=== PATIENT | female | born 1950 | race African-American/Black ===

== ENCOUNTER 2020-08-09 15:35 | IRF | payer MEDICARE, MEDICAID, SELFPAY ==
--- NOTE | ~2020-08-09 | US_ITS ---
EXAMINATION: US venous doppler LE EXAM DATE: 08/10/2020 15:15 INDICATION: edema to legs,. TECHNIQUE: Multiple grayscale, color flow and Doppler images of the lower extremity deep venous syste ms bilaterally were obtained and reviewed. There is no prior study for comparison. FINDINGS: Right side: The right common femoral, femoral and profunda veins demonstrate normal color flow, respi ratory variation, augmentation and compressibility. Compressibility, color flow confirmed within the right popliteal, posterior tibial, peroneal, and greater saphenous veins. Left side: The left common femoral, femoral and profunda veins demonstrate normal color flow, respira tory variation, augmentation and compressibility. Compressibility, color flow confirmed within the l eft popliteal, posterior tibial, peroneal, and greater saphenous veins. IMPRESSION: 1. No lower extremity deep venous thrombosis bilaterally. Reviewed, dictated and finalized at location A.
--- NOTE | ~2020-08-09 | XR_ITS ---
EXAMINATION: XR chest 1V portable INDICATION: Pleural effusion TECHNIQUE: Portable AP chest at 1136 hours COMPARISON: None available FINDINGS: A small left pleural effusion is present. There are minimal left basilar airspace opacities . The right lung is clear. There is no pneumothorax. The heart size is upper limits of normal for ron hnique. IMPRESSION: 1. Small left pleural effusion. 2. Left basilar airspace opacity, consistent with atelectasis versus pneumonia. Reviewed, dictated and finalized at location A.
--- NOTE | ~2020-08-09 | CT_ITS ---
EXAMINATION: CT brain wo con EXAM DATE: 08/10/2020 20:04 INDICATION: Drowsiness. History of stroke. TECHNIQUE: Spiral CT of the head was performed without contrast. Axial, coronal and sagittal images were reviewed. The dose-length product (DLP) for this examination was 681.00 mGy-cm. The exposure w as tailored according to patient size, and iterative reconstruction (ASIR) was used as additional dos e reduction technique. There is no prior study for comparison. FINDINGS: There is approximately 1 cm hypodensity in the right peritrigonal white matter, age indeter minate infarct. There is mild to moderate microangiopathy in mild cerebral atrophy. No brain mass, ac elem intraparenchymal hemorrhage, extra-axial collections or obstructive hydrocephalus. Imaged portion s of the maxillary sinuses opacified, mild to moderate bilateral ethmoid periosteal thickening. Hyper ostosis frontalis. Under pneumatized mastoid air cells. IMPRESSION: 1. Small right peritrigonal hypodensity, probably age-indeterminate infarction. 2. Age-related intracranial findings. Reviewed, dictated and finalized at location A. IMPRESSION: 1. Small right peritrigonal hypodensity, probably age-indeterminate infarction . 2. Age-related intracranial findings.
--- OUTSIDE RECORDS SUMMARY | 2020-08-09 15:31 | XMS_ITS ---
:1950 Author Care Team Providers Name Role Phone DR. SALVA QUINTANA Primary Care Provider [phone] DR. SLAVA QUINTANA Referring Provider [phone] Allergies Code Code System Name Reaction Severity Status Onset 723 RxNorm Amoxicillin ? ? Active ? Penicillins ? ? Active ? Medications Name Status Start Date Stop Date ? ? aspirin Active ? Not available 81 mg carvedilol 3.125 mg tablet Active ? Not a vailable indomethacin 50 mg capsule Active ? Not a vailable lisinopril 40 mg tablet Active ? Not avai lable simvastatin 10 mg tablet Active ? Not chun ilable triamterene 75 mg-hydrochlorothiazide 50 Active ? Not available mg tablet TRUEplus Lancets 30 gauge Active ? Not av ailable Truetest Test Strips Active ? Not availab le Problems Name Status Onset Date Source ? Carcinoma of Breast Active ? Encounter Microcalcifications of the Breast Active ? Encounter Procedures Date Name Performed by ? 05/17/2014 Other Information not avai lable Notes: Breast Biopsy Left ? Breast Surgery Information not avai lable Notes: left breast ? Other Information not avai lable Notes: Hysterectomy Results Lab Results Date Name Specimen Result Interpretation Description Value Range Sta
--- NOTE | 2020-08-09 15:32 | ADMGEN ---
This patient, Desi Bynum, was admitted to [facility] Room 225-02. Patient/family oriented to hospital policies and general routines including ID bracelet, bed and alarms, visiting hours, pain management, procedures, bathroom and other care routines, personal items, smoking policy, room service/diet, and visiting hours. Information on how to activate the Rapid Response Team has been discussed. Patient/Family are encouraged to report perceived risks to care and to ask questions if they do not understand what they are told or what they should do. Arrived 1515 via ambulance, quiet affect, no c/o pain. Oriented to place and time.
[2020-08-09 15:34] VITALS: BP 131/59; PULSE 80; RESP 15; TEMP 36.7; O2SAT 98
[2020-08-09 16:52] LABS: INR 0.9; Prothrombin Time 12.6 Seconds (11.1-14.7)
--- NOTE | 2020-08-09 16:59 | WPDREHABHP ---
H&P: HPI History of Present Illness Date/Time: 08/09/20 16:59 Chief Complaint: CVA bilateral hemispheric with left hemiplegia left visual deficits Narrative: HISTORY OF PRESENT ILLNESS: The patient's primary rehab impairment category is [ stroke] The etiologic diagnosis is acute and subacute stroke along the posterior frontal, lateral and posterior lateral parietal posterior and inferior temporal and right occipital lobes. I saw this patient [id number] on 08/09/2020 The patient is a 69-year-old left-handed female with past medical history of hypertension, diabetes mellitus type 2 diet control, TIA, breast cancer for resent to [facility] on 07/31/2020 with complaints of shortness of breath dyspnea on exertion, bilateral lower extremity edema and neck pain over the last 3 days. Patient was also found to have hypertensive urgency with a BP significantly elevated at 230 3/134. Patient received IV labetalol, IV hydralazine, and nitropaste and admitted to telemetry. Workup: Chest x-ray showed development of moderate size right-sided pleural effusion with adjacent right basilar at atelectasis and infiltrate, a small left pleural effusion with left lower lobe atelectasis and infiltrate, and development of central vascular congestion with borderline edema. Echo showed ejection fraction of 50-55%. The physician suspected new onset of heart failure due to volume overload and orthopnea. Patient's creatinine was elevated at 1.74 with a baseline of 1.2. Patient was diuresed with Bumex. Cardiology was consulted due to patient's dizziness on hydralazine. Hydralazine was discontinued and replaced with Cardura. Patient also had intolerance and sensitivity to Imdur, Norvasc, hydrochlorothiazide, and clonidine. On 08/05 the patient underwent a right thoracentesis for effusion with 1 L fluid removal. Patient lost 15 lb during her hospital stay. The patient also had a history of spinal stenosis and degenerative disc disease for July of 2019. MRI of the cervical spine showed no evidence of acute fracture or subluxation. She received [place] for pain control. On 08/05/2020 the patient experience left-sided weakness. MRI revealed numerous foci of cortical and subcortical acute or subacute stroke along the posterior frontal, lateral and posterior lateral parietal, posterior inferior temporal, and right occipital lobe. Patient also had restricted diffusion along the right posterior coronal Boris odd a corresponding to additional areas of stroke. No hemorrhagic conversion was seen. A head CT showed evolving multi foci of right-sided stroke in the parietal, temporal, and Cipro lobe corresponding to prior MRI findings. Carotid Doppler with no significant stenosis were noted. Echo was in normal limits without thrombus. Neurology was consulted and suspected embolic origin she was started on full anticoagulation with INR goal of 2-3. Patient was also placed on Lipitor 80 mg for current LDL of 256. Hemoglobin A1c was 5.8. Telemetry demonstrated PVCs, an SVT and her Bystolic was increased to 20 mg b.i.d. she had no significant air a arrhythmias in the last 48-72 hours On 08/07/2020 the patient had bedside swallow with no signs or symptoms of penetration or aspiration. The patient expressed to downgrade her diet due to mechanically difficulties with mastication. Her physical exam revealed left melvi paresis left the vision deficits, left-sided neglect, balance impairment, mild cognitive deficits, the patient The patient is on a strict I/O of 1100 cc. The patient will be discharged to see on Coumadin is being dosed by pharmacy along with a daily INR to achieve a therapeutic range between 2 and 3. Current INR is 1 Patient is on aspirin Therapy was initiated at the acute care facility and the patient transferred to us from [facility] on 08/09/2020 FALLS OR SURGERIES: The patient has had [no] major surgeries in
[2020-08-09 17:19] VITALS: BMI 27.0
[2020-08-09] MEDS: WARFARIN (*PBKC) 5 MG TABLET PO (17:30)
[2020-08-09 20:00] VITALS: PULSE 77; RESP 16; O2SAT 98
[2020-08-09] MEDS: ACETAMINOPHEN 500 MG TABLET 1000 MG PO (21:03)
[2020-08-09 21:06] VITALS: PULSE 72
[2020-08-09] MEDS: NEBIVOLOL HCL 5 MG TABLET 20 MG PO (21:06)
[2020-08-09] MEDS: ATORVASTATIN 40 MG TABLET 80 MG PO (21:09)
[2020-08-09 21:50] LABS: Glucose Point of Care 100 (65-105)
[2020-08-09 22:00] VITALS: BP 140/55; PULSE 77; RESP 16; TEMP 36.5; O2SAT 98
[2020-08-10] VITALS (7 sets, daily range): BP systolic 158–173; BP diastolic 57–65; PULSE 77–90; RESP 16–20; TEMP 36.3–36.8; O2SAT 95–100
--- NOTE | 2020-08-10 03:28 | PC.NURSE ---
pt assessed for pain and rated pain on as a 10/10. pt refused pain medication at this time.
--- NOTE | 2020-08-10 05:54 | PC.NURSE ---
0245 Attempted to give patient Tylenol and Senna crushed in applesauce but the patient refused both of them.
[2020-08-10 06:37] LABS: Glucose Point of Care 73 (65-105)
[2020-08-10 06:54] LABS: Basophils Percent Auto 0.7 % (0.2-1.2); Eosinophils Absolute Auto 0.1 K/mm3 (0-0.3); Eosinophils Percent Auto 2.6 % (0-4.4); Hematocrit 35.9 % (37.0-47.0); Hemoglobin 11.9 g/dL (12.0-15.0); Immature Granulocyte Absolute 0.01 K/mm3 (0.00-0.031); Immature Granulocyte Percent A 0.2 % (0-0.5); Lymphocytes Absolute Auto 0.99 K/mm3 (0.9-3.2); Lymphocytes Percent Auto 23.2 % (18.3-44.2); Mean Corpuscular HGB Conc 33.1 g/dl (32-36); Mean Corpuscular Hemoglobin 27.2 pg (26-34); Mean Platelet Volume 10.6 fl (7.4-10.4); Monocytes Absolute Auto 0.5 K/mm3 (0.1-0.6); Monocytes Percent Auto 11.9 % (2.6-8.5); Neutrophils Absolute Auto 2.6 K/mm3 (1.3-6.7); Neutrophils Percent Auto 61.4 % (45.5-73.1); Platelet Count Result 331 k/mm3 (150-375); Red Blood Count 4.38 M/mm3 (4.2-5.4); Red Cell Distribution Width 14.3 % (11.5-14.5); White Blood Count 4.3 K/mm3 (4.5-10.0)
[2020-08-10 07:05] LABS: Anion Gap 4 mmol/L (8-16); Blood Urea Nitrogen 30 mg/dL (7-17); Calcium 9.5 mg/dL (8.4-10.2); Carbon Dioxide 28 mmol/L (22-30); Chloride 106 mmol/L (98-107); Cholesterol 286 mg/dL (0-200); Estimated CRCL calculation 22 ml/min; Estimated Glomerular Filt Rate 32; Glucose 87 mg/dL (65-105); HDL Direct 39 mg/dL; Potassium 3.8 mmol/L (3.4-5.0); Sodium 138 mmol/L (137-145); Triglycerides 214 mg/dL (<150)
[2020-08-10 07:07] LABS: Hemoglobin A1C 5.3 % (<5.7)
[2020-08-10 07:09] LABS: Glucose Point of Care 108 (65-105)
[2020-08-10 07:17] LABS: LDL Cholesterol Direct 140 mg/dL
[2020-08-10] MEDS: DOXAZOSIN MESYLATE 2 MG TABLET PO (08:48)
[2020-08-10] MEDS: ASPIRIN 81 MG ENTERIC TABLET PO (08:48)
[2020-08-10] MEDS: TORSEMIDE 10 MG TABLET PO (08:48)
[2020-08-10] MEDS: NIFEdipine 30 MG TAB.ER.24 60 MG PO (08:48)
[2020-08-10] MEDS: NEBIVOLOL HCL 5 MG TABLET 20 MG PO ×2 (08:48→21:35)
[2020-08-10] MEDS: POTASSIUM CHLORIDE 20 MEQ TABLET.ER PO (08:48)
--- NOTE | 2020-08-10 10:32 | WPDNEURORHBP ---
Subjective Date/time seen: 08/10/20 10:32 Interval history: Rehab diagnosis bilateral hemispheric infarcts. With significant left hemiplegia left visual field deficits and mild right hemiplegia. Patient was seen at [facility] with shortness of breath and found to have right-sided pleural effusion and significant elevated blood pressure being 230/134. Patient required diuresis with Bumex. On 08/05 patient experienced left-sided weakness. MRI revealed numerous foci of cortical and subcortical as well as subacute strokes along the posterior frontal, lateral and posterior lateral parietal, posterior inferior and right occipital lobe. Patient is currently being anticoagulated on aspirin and Coumadin. Coumadin dosing is ongoing. Patient seen during physical therapy. Patient required max assistance with bed to standing transfers. Patient required Min to moderate assistance with wheelchair mobility. Review of Systems Review of Systems: All systems reviewed & are unremarkable except as noted in HPI and below Functional Status Transfers Ability Ability to Transfer In/Out of Chair: Maximum Assistance X 1 Exam Narrative: Exam Narrative: Affect is flat. Speech is dysarthric . left visual field loss is noted heart rate and rhythm is regular. Lungs are clear to auscultation. Abdomen is obese. 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 Right upper extremity strength is 3+ out of 5. Left upper extremity strength is 2 to 3/5. Bilateral lower extremity strength is roughly 3/5. Patient's transfers were max assistance of 1 using a steady. Wheelchair mobility was Min to moderate assistance using the right upper extremity. All motor is very slow. Reaction time is severely delayed. Objective Data Vital Signs Vital Signs: Vital Signs - 24 hr 08/09/20 15:34 08/09/20 20:00 08/09/20 21:06 Temperature 36.7 C Pulse Rate 80 77 72 Respiratory Rate 15 16 Blood Pressure 131/59 L Pulse Oximetry 98 98 08/09/20 22:00 08/10/20 02:02 08/10/20 06:00 Temperature 36.5 C 36.3 C L Pulse Rate 77 89 81 Respiratory Rate 16 16 Blood Pressure 140/55 L 162/60 H 173/65 H Pulse Oximetry 98 98 99 08/10/20 08:48 Temperature Pulse Rate 81 Respiratory Rate Blood Pressure Pulse Oximetry Intake/Output Intake/Output: Intake & Output 08/07/20 08/08/20 08/09/20 08/10/20 23:59 23:59 23:59 23:59 Intake Total 120 120 Balance 120 120 Meds/Results Medications: Active Medications Generic Name Dose Route Start Last Admin Trade Name Fabio PRN Reason Stop Dose Admin Acetaminophen 1,000 mg 08/09/20 16:38 08/09/20 21:03 Acetaminophen 500 Mg Tablet PO 1,000 mg Q6H PRN Administration Pain, Moderate Hydrocodone Bitart/Acetaminophen 1 tab 08/09/20 16:38 Hydrocodone/Acetaminophen (*Crx) 5-325 Mg Tablet PO Q4H PRN Pain (Scale Score 7-10) Aspirin 81 mg 08/10/20 09:00 08/10/20 08:48 Aspirin 81 Mg Enteric Tablet PO 81 mg DAILY ARINA Administration Atorvastatin Calcium 80 mg 08/09/20 21:00 08/09/20 21:09 Atorvastatin 40 Mg Tablet PO 80 mg HS ARINA Administration Doxazosin Mesylate 2 mg 08/10/20 09:00 08/10/20 08:48 Doxazosin Mesylate 2 Mg Tablet PO 2 mg DAILY ARINA Administration Nebivolol 20 mg 08/09/20 21:00 08/10/20 08:48 Nebivolol Hcl 5 Mg Tablet PO 20 mg Q12H ARINA Administration Nifedipine 60 mg 08/10/20 09:00 08/10/20 08:48 Nifedipine 30 Mg Tab.Er.24 PO 60 mg DAILY ARINA Administration Potassium Chloride 20 meq 08/10/20 09:00 08/10/20 08:48 Potassium Chloride 20 Meq Tablet.Er PO 20 meq DAILY ARINA Administration Senna 8.6 mg 08/09/20 16:38 Sennosides 8.6 Mg Tablet PO BID PRN Constipation Torsemide 10 mg 08/10/20 09:00 08/10/20 08:48 Torsemide 10 Mg Tablet PO 10 mg QAM ARINA Administration Warfarin Sodium 5 mg 08/09/20 17:00 08/09/20 17:30 Warfarin (*Pbk
[2020-08-10 11:14] LABS: INR 0.9; Prothrombin Time 12.4 Seconds (11.1-14.7)
[2020-08-10 11:36] LABS: Glucose Point of Care 140 (65-105)
--- NOTE | 2020-08-10 14:07 | PCSTNOTE ---
Bedside swallow evaluation was completed this am when pt was somewhat somnolent (requiring cues to stay awake); due to findings, ST downgraded diet to puree from minced and moist as a precaution from increased risk of aspiration and oral leakage. Later nursing reported to ST that the pt's daughter arrived and desired that her mother's diet be returned to the minced and moist as she has been on that diet for the past 9 days and has done well. She also stated that she feared that her mother will not eat the pureed diet. ST spoke with the pt's daughter to explain reasoning for diet upgrade, i.e. the lethargy. The pt's daughter persisted that she wanted the diet level returned to minced and moist and she would be here to assist at the evening meal. ST spoke with nursing about this situation. Nursing (Tayla) advised that she would discussed this matter with Dr Stoll. ST will see pt again tomorrow for another swallow evaluation during a meal for further assessment and advisement.
[2020-08-10] MEDS: WARFARIN (*PBKC) 5 MG TABLET PO (16:41)
[2020-08-10 16:51] LABS: Glucose Point of Care 93 (65-105)
[2020-08-10 21:09] LABS: Glucose Point of Care 79 (65-105)
[2020-08-10] MEDS: MELATONIN 3 MG TABLET PO (21:35)
[2020-08-10] MEDS: ATORVASTATIN 40 MG TABLET 80 MG PO (21:35)
[2020-08-10] MEDS: ACETAMINOPHEN 500 MG TABLET 1000 MG PO (21:38)
[2020-08-10 22:13] LABS: Glucose Point of Care 98 (65-105)
--- NOTE | 2020-08-10 22:16 | PC.NURSE ---
Pt took 1 atorvastatin, 1 melatonin, 1 Bystolic and 1 Tylenol. She refused 3 Bystolic and 1 Tylenol. Pt stated No damn it, I'm not taking any medice. Pt was acting very suspicious asking multiple times what this nurse was giving her. Accused this nurse of trying to overdose her. Reported to charge nurse to try to give remaining medications.
--- NOTE | 2020-08-10 22:44 | PC.NURSE ---
stone given while on the phone with family. family was notified due to pt suspicion
[2020-08-11] VITALS (7 sets, daily range): BP systolic 149–186; BP diastolic 64–72; PULSE 18–83; RESP 18–84; TEMP 36–36.8; O2SAT 96–100
[2020-08-11 04:51] LABS: INR 1.1; Prothrombin Time 14.5 Seconds (11.1-14.7)
[2020-08-11 05:34] LABS: Glucose Point of Care 74 (65-105)
--- NOTE | 2020-08-11 05:49 | PC.NURSE ---
0532 Patient's blood glucose was taken and it was 74. She was offered a drink by MAHAMED Alexis and she refused. She was also offered a snack by MAHAMED Beatty and she also refused.
[2020-08-11] MEDS: NEBIVOLOL HCL 5 MG TABLET 20 MG PO ×2 (07:57→17:30)
[2020-08-11] MEDS: DOXAZOSIN MESYLATE 2 MG TABLET PO (07:57)
[2020-08-11] MEDS: NIFEdipine 30 MG TAB.ER.24 60 MG PO (07:58)
--- NOTE | 2020-08-11 08:03 | PC.NURSE ---
family was notified about pt high bp and med refusal. asked if family could come in earlier to help with med pass.
[2020-08-11] MEDS: TORSEMIDE 10 MG TABLET PO (08:43)
[2020-08-11] MEDS: ASPIRIN 81 MG ENTERIC TABLET PO (08:43)
[2020-08-11] MEDS: POTASSIUM CHLORIDE 20 MEQ TABLET.ER PO (08:43)
--- NOTE | 2020-08-11 09:56 | WPDNEURORHBP ---
Subjective Date/time seen: 08/11/20 09:56 Interval history: Rehab diagnosis: bilateral hemispheric infarcts with significant left hemiplegia, left visual field deficits and mild right hemiplegia, cognitive deficits, Patient was seen at [facility] with shortness of breath and found to have right-sided pleural effusion and significant elevated blood pressure being 230/134. Patient required diuresis with Bumex. On 08/05 patient experienced left-sided weakness. MRI revealed numerous foci of cortical and subcortical as well as subacute strokes along the posterior frontal, lateral and posterior lateral parietal, posterior inferior and right occipital lobe. Patient is currently being anticoagulated on aspirin and Coumadin. Coumadin dosing is ongoing. Patient seen with daughter and during breakfast at RN station.Cognition fluctuates throughout the day. Review of Systems Review of Systems: All systems reviewed & are unremarkable except as noted in HPI and below Functional Status Transfers Ability Ability to Transfer In/Out of Chair: Maximum Assistance X 1 Exam Narrative: Exam Narrative: Affect is flat. Speech is dysarthric . left visual field loss is noted. heart rate and rhythm is regular. Lungs are clear to auscultation. Abdomen is obese. 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 Right upper extremity strength is 3+ out of 5. Left upper extremity strength is 2 to 3/5. Bilateral lower extremity strength is roughly 3/5. Patient's transfers were max assistance of 1 using a steady. Wheelchair mobility was Min to moderate assistance using the right upper extremity. All motor is very slow. Reaction time is severely delayed. Cognition improved throughout the morning. Objective Data Vital Signs Vital Signs: Vital Signs - 24 hr 08/10/20 14:00 08/10/20 20:05 08/10/20 21:29 Temperature 36.7 C 36.8 C 36.8 C Pulse Rate 90 77 77 Respiratory Rate 16 20 20 Blood Pressure 158/64 H 164/57 H 164/57 H Pulse Oximetry 95 100 100 08/10/20 21:35 08/11/20 06:00 08/11/20 06:05 Temperature 36.8 C Pulse Rate 77 78 75 Respiratory Rate 18 Blood Pressure 186/65 H 186/65 H Pulse Oximetry 100 100 08/11/20 07:57 Temperature Pulse Rate 75 Respiratory Rate Blood Pressure Pulse Oximetry Intake/Output Intake/Output: Intake & Output 03/25/08/09/20 08/10/20 08/11/20 23:59 23:59 23:59 23:59 Intake Total 120 120 Balance 120 120 Meds/Results Medications: Active Medications Generic Name Dose Route Start Last Admin Trade Name Fabio PRN Reason Stop Dose Admin Acetaminophen 1,000 mg 08/09/20 16:38 08/10/20 21:38 Acetaminophen 500 Mg Tablet PO 1,000 mg Q6H PRN Administration Pain, Moderate Hydrocodone Bitart/Acetaminophen 1 tab 08/09/20 16:38 Hydrocodone/Acetaminophen (*Crx) 5-325 Mg Tablet PO Q4H PRN Pain (Scale Score 7-10) Aspirin 81 mg 08/10/20 09:00 08/11/20 08:43 Aspirin 81 Mg Enteric Tablet PO 81 mg DAILY ARINA Administration Atorvastatin Calcium 80 mg 08/09/20 21:00 08/10/20 21:35 Atorvastatin 40 Mg Tablet PO 80 mg HS ARINA Administration Doxazosin Mesylate 2 mg 08/10/20 09:00 08/11/20 07:57 Doxazosin Mesylate 2 Mg Tablet PO 2 mg DAILY ARINA Administration Melatonin 3 mg 08/10/20 21:00 08/10/20 21:35 Melatonin 3 Mg Tablet PO 3 mg HS ARINA Administration Nebivolol 20 mg 08/09/20 21:00 08/11/20 07:57 Nebivolol Hcl 5 Mg Tablet PO 20 mg Q12H ARINA Administration Nifedipine 60 mg 08/10/20 09:00 08/11/20 07:58 Nifedipine 30 Mg Tab.Er.24 PO 60 mg DAILY ARINA Administration Potassium Chloride 20 meq 08/10/20 09:00 08/11/20 08:43 Potassium Chloride 20 Meq Tablet.Er PO 20 meq DAILY ARINA Administration Senna 8.6 mg 08/09/20 16:38 Sennosides 8.6 Mg Tablet PO BID PRN Constipation Torsemide 10 mg 08/10/20 09:00 08/11/20 08:43 Torsemide
--- NOTE | 2020-08-11 16:14 | WPDNEURCNPN ---
Assessment and Plan Assessment and plan (1) CVA (cerebral vascular accident): Code(s): I63.9 - Cerebral infarction, unspecified Status: Acute (2) Dysarthria: Code(s): R47.1 - Dysarthria and anarthria Status: Acute (3) Visual field constriction of left eye: Code(s): H53.482 - Generalized contraction of visual field, left eye Status: Acute (4) Left hemiplegia: Code(s): G81.94 - Hemiplegia, unspecified affecting left nondominant side Status: Acute Additional Plan right hemispheric stroke with multiple foci even though there was no significant carotid stenosis patient has been started on anticoagulation therapy which is being continued with the precaution of not converting the thrombotic stroke in to the hemorrhagic stroke that is slow anticoagulation clinical the patient is definitely awake alert with obvious neurological deficit and treatment is being continued as such will follow the patient along with the Consult date: 08/11/20 Time Seen: 16:00 HPI: Desi Bynum is a 69 year old femaleHas been admitted to the acute rehab of [facility] with the primary rehab impairment category of stroke that is left hemiplegia with left visual field cut in addition to the ongoing history of 1. Hypertension 2. Diabetes mellitus 3. Carcinoma of the breast 4. Difficulties in breathing particularly on exertion and subsequently documented hypertension. Further evaluation revealed right-sided pleural effusion, and spinal stenosis with underlying degenerative disc disease. Blood pressure has been gradually controlled. Edema has been significantly decreased with adjustment of the medication and also thoracentesis he was found to have left-sided weakness with documented abnormal MRI that is normal numerous foci of cortical or subcortical acute or subacute strokes along the posterior frontal lateral and posterior lateral parietal posterior inferior temporal and right occipital lobe location which were attributed to embolic in nature. A Doppler study of the carotid documented no large vessel stenosis and echocardiogram was normal particularly with no evidence of thrombus subsequent course was of gradual improvement but residual left hemiparesis with left visual field cut left-sided hemineglect and balance impairment. her most recent INR is 1.1, medications include aspirin 81 mg daily, atorvastatin 80 mg daily, Coumadin 5 mg daily and antihypertensive medication in addition to hydrocodone for the ongoing spinal stenosis Review of Systems Review of Systems: All systems reviewed & are unremarkable except as noted in HPI and below PMFSH Past Medical History Medical History Breast cancer Cervical radiculopathy due to degenerative joint disease of spine Cervical stenosis (uterine cervix) CVA (cerebral vascular accident) Diastolic heart failure Diet-controlled diabetes mellitus Gout Hypertension Lichen sclerosus of female genitalia Osteoarthritis Pleural effusion Radiation-induced cerebral vasculitis TIA (transient ischemic attack) Surgical History Surgical History H/O mastectomy H/O: hysterectomy Family History Family History Father Hypertension Diabetes mellitus Cancer Mother Cerebrovascular accident Social History Social History Social History: former smoker. Patient denies use of alcohol or illicit drugs. Patient lives alone in a 1 story home with 1 step to enter. Prior to this patient was independent without adaptive device. Patient occasionally used a cane if her gout flared in her knee. Patient's daughter helped the patient in and out of the shower for safety. The patient was able to complete bathing and dressing independently. Her daughter reports the family has made arrangements to stay with her and
[2020-08-11] MEDS: WARFARIN (*PBKC) 5 MG TABLET PO (17:31)
[2020-08-11] MEDS: ATORVASTATIN 40 MG TABLET 80 MG PO (19:40)
[2020-08-11] MEDS: MELATONIN 3 MG TABLET PO (19:44)
[2020-08-12 05:15] VITALS: BP 150/60; PULSE 80; RESP 20; TEMP 36.8; O2SAT 100
[2020-08-12 07:08] LABS: INR 1.3; Prothrombin Time 16.3 Seconds (11.1-14.7)
--- NOTE | 2020-08-12 08:46 | RPD ---
INDIVIDUALIZED PLAN OF CARE FOR Desi Bynum Brief Synthesis of Pre-Admission Screen, Post-Admission Evaluation and Therapy Evaluations: The patient presents to rehab with an acute/subacute stroke along the posterior frontal, lateral and posterior lateral parietal, posterior and inferior temporal, and right occipital lobe. Comorbidities include acute left-sided weakness, acute decompensated diastolic heart failure, bilateral pleural effusions, diabetes mellitus type 2, hypertension, hyperlipidemia, chronic kidney disease, new impaired vision left eye, hx of TIA, hx of breast cancer, and dyspnea on exertion. The complexity of the patient's medical management, nursing, and therapy needs require an inpatient rehab hospital stay with a physician-led interdisciplinary team approach. The patient?s needs will be best met in an intensive program vs. at a lower level of care. The patient requires physician services for medical oversight and coordination of care. Emotional needs will be monitored as depression is a common sequelae of stroke. The patient needs physician monitoring and treatment for difficulty with medication adjustments, dizziness, hypokalemia, acute kidney injury, hypertension, bilateral LE swelling (with LAUREN wraps recommended), R>L bilateral pleural effusions s/p thoracentesis, dyspnea, and acute neck pain. The patient requires nursing services for frequent neuro checks, anticoagulation therapy, medication management and education, pressure relief and skin care management, monitoring of labs, bowel and bladder training, diabetes management and education, possible IV administration, and fall/safety precautions. The patient will participate in stroke-specific education regarding risk modification to decrease the risk of further stroke; the family will also be invited to participate. Deficits include:ADLs, Balance, Cognition, Endurance, Family Training/Education, Mobility, Pain Management, ROM, Safety, Speech, Strength, Swallowing, and Transfers. Grain Picker/Case Management for: Discharge Planning and Patient/Family Counseling Physical Therapy: 5 days per week for 60 minutes. Treatments may include: Therapeutic Exercise, Gait Training, Neuromuscular Re-education, Transfer Training, Community Reintegration, Bed Mobility, Patient/Family Education, Wheelchair Mobility Group Therapy/Concurrent Therapy Rationales: -Improve attention span during functional activities in a distracted environment. -Enhance problem solving and/or adequate judgment skills during functional activities in a distracted environment. -Promote increased safety awareness in a distracted environment to reduce fall risk with functional tasks, transfers, and ambulation to allow a more safe, self-sufficient return to the home environment. -Improve dynamic balance skills to promote safety and independence with functional activities in a distracted environment for maximum gain. Occupational Therapy: 5 days per week for 60 minutes. Treatments may include: Therapeutic Exercise, Therapeutic Activity, Cognitive Training, Self-Care Transfer Training, Community Reintegration, Home Management, Patient/Family Education, Wheelchair Mobility Training, Energy Conservation Training Group Therapy/Concurrent Therapy Rationales: -Allow therapist to observe and teach generalization and carry-over of skills learned in individual therapy. -Enhance problem solving and sequencing skills during therapeutic activities in a distracted environment. -Promote increased safety awareness in a realistic setting to reduce fall risk with functional tasks due to visual and verbal distractions. -Increase functional level with ADLs, ADL transfers and use of adaptive equipment through therapeutic activities with others while promoting safety to allow a more safe, self-sufficient return home. Speech Therapy: 5 days per week for 60 minutes. Treatments may include: Dysphasia Therapy, Speech/Language/Communication Therapy, Cognitive Traini
[2020-08-12] MEDS: ASPIRIN 81 MG ENTERIC TABLET PO (08:52)
[2020-08-12] MEDS: DOXAZOSIN MESYLATE 2 MG TABLET PO (08:52)
[2020-08-12] MEDS: TORSEMIDE 10 MG TABLET PO (08:52)
[2020-08-12] MEDS: NIFEdipine 30 MG TAB.ER.24 60 MG PO (08:52)
[2020-08-12] MEDS: POTASSIUM CHLORIDE 20 MEQ TABLET.ER PO (08:52)
[2020-08-12 08:53] VITALS: PULSE 80
[2020-08-12] MEDS: NEBIVOLOL HCL 5 MG TABLET 20 MG PO ×2 (08:53→17:19)
[2020-08-12] MEDS: ACETAMINOPHEN 500 MG TABLET 1000 MG PO (08:53)
[2020-08-12] MEDS: polyethylene glycoL 3350 17 GM POWD.PACK PO (08:53)
[2020-08-12] MEDS: SILVERGEL (ELTA) 45 ML 1 APPLIC TOPICAL (10:17)
[2020-08-12 12:46] VITALS: BMI 27.0
--- NOTE | 2020-08-12 13:02 | PCNSR ---
On 08/12/20, the student, Darlene Barrow, provided care and completed [facility] documentation on this patient. I have reviewed the student's documentation and agree with the findings.
[2020-08-12 14:00] VITALS: BP 124/51; PULSE 79; RESP 18; TEMP 36.6; O2SAT 100
--- NOTE | 2020-08-12 14:08 | PCPTNOTE ---
Desi Bynum was evaluated for a wheeled walker on 08/12/2020 by this physical therapist. The wheeled walker will resolve patient's mobility limitations and will be used for ADL's within the home. The patient can safely use the wheeled walker. ?The wheeled walker will resolve the patient?s mobility deficits, including poor endurance, L hemiplegia, B LE motor apraxia, and decreased balance.
--- NOTE | 2020-08-12 16:13 | WPDNEURORHBP ---
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 Patient required diuresis with Bumex. On 08/05 patient experienced left-sided weakness. MRI revealed numerous foci of cortical and subcortical as well as subacute strokes along the posterior frontal, lateral and posterior lateral parietal, posterior inferior and right occipital lobe. Patient is currently being anticoagulated on aspirin and Coumadin. Coumadin dosing is ongoing. Patient much more alert. Patient is animated. Patient able to follow directions Review of Systems Review of Systems: All systems reviewed & are unremarkable except as noted in HPI and below Functional Status Ambulation Ability Ability to Ambulate 10 Feet: Moderate Assistance X 1 Ambulation Assistive Devices: Walker, Wheeled Transfers Ability Ability to Transfer In/Out of Chair: Maximum Assistance X 1 Exam Narrative: Exam Narrative: Speech is dysarthric . left visual field loss is noted. heart rate and rhythm is regular. Lungs are clear to auscultation. Abdomen is obese. 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 Right upper extremity strength is 3+ out of 5. Left upper extremity strength is 2 to 3/5. Bilateral lower extremity strength is 3+/5. bed mobility is max assistance. Patient transfers with a 2 wheeled walker with moderate assistance and cues for attention to left side and to utilize left upper extremity. Patient continues to demonstrate decreased left body awareness. Patient ambulated 15 ft with a 2 wheeled walker with moderate assistance with leaning to the left. Objective Data Vital Signs Vital Signs: Vital Signs - 24 hr 08/11/20 17:30 08/11/20 20:00 08/11/20 20:30 Temperature 36.6 C Pulse Rate 78 83 83 Respiratory Rate 20 20 Blood Pressure 149/64 H Pulse Oximetry 98 98 08/12/20 05:15 08/12/20 08:53 08/12/20 14:00 Temperature 36.8 C 36.6 C Pulse Rate 80 80 79 Respiratory Rate 20 18 Blood Pressure 150/60 H 124/51 L Pulse Oximetry 100 100 Intake/Output Intake/Output: Intake & Output 03/2608/10/20 08/11/20 08/12/20 23:59 23:59 23:59 23:59 Intake Total 120 349 225 2167 Balance 120 704 052 2913 Meds/Results Medications: Active Medications Generic Name Dose Route Start Last Admin Trade Name Yosvanyq PRN Reason Stop Dose Admin Acetaminophen 1,000 mg 08/09/20 16:38 08/12/20 08:53 Acetaminophen 500 Mg Tablet PO 1,000 mg Q6H PRN Administration Pain, Moderate Hydrocodone Bitart/Acetaminophen 1 tab 08/09/20 16:38 Hydrocodone/Acetaminophen (*Crx) 5-325 Mg Tablet PO Q4H PRN Pain (Scale Score 7-10) Aspirin 81 mg 08/10/20 09:00 08/12/20 08:52 Aspirin 81 Mg Enteric Tablet PO 81 mg DAILY ARINA Administration Atorvastatin Calcium 80 mg 08/09/20 21:00 08/11/20 19:40 Atorvastatin 40 Mg Tablet PO 80 mg HS ARINA Administration Doxazosin Mesylate 2 mg 08/10/20 09:00 08/12/20 08:52 Doxazosin Mesylate 2 Mg Tablet PO 2 mg DAILY ARINA Administration Melatonin 3 mg 08/10/20 21:00 08/11/20 19:44 Melatonin 3 Mg Tablet PO 3 mg HS ARINA Administration Nebivolol 20 mg 08/11/20 17:00 08/12/20 08:53 Nebivolol Hcl 5 Mg Tablet PO 20 mg 0800,1700 ARINA Administration Nifedipine 60 mg 08/10/20 09:00 08/12/20 08:52 Nifedipine 30 Mg Tab.Er.24 PO 60 mg DAILY ARINA Administration Polyethylene Glycol 17 gm 08/12/20 09:00 08/12/20 08:53 Polyethylene Glycol 3350 17 Gm Powd.Pack PO 17 gm QAM ARINA Administration Potassium Chloride 20 meq 08/10/20 09:00 08/12/20 08:52 Potassium Chloride 20 Meq Tablet.Er PO 2
[2020-08-12] MEDS: WARFARIN (*PBKC) 5 MG TABLET PO (17:18)
[2020-08-12 17:19] VITALS: PULSE 79
[2020-08-12] MEDS: ATORVASTATIN 40 MG TABLET 80 MG PO (20:14)
[2020-08-12 21:58] VITALS: BP 125/50; PULSE 77; RESP 16; TEMP 37.1; O2SAT 100
[2020-08-13 05:15] LABS: INR 1.5; Prothrombin Time 18.8 Seconds (11.1-14.7)
[2020-08-13 06:00] VITALS: BP 156/64; PULSE 69; RESP 16; TEMP 36.6; O2SAT 100
[2020-08-13 08:24] VITALS: PULSE 72
[2020-08-13] MEDS: DOXAZOSIN MESYLATE 2 MG TABLET PO (08:24)
[2020-08-13] MEDS: polyethylene glycoL 3350 17 GM POWD.PACK PO (08:24)
[2020-08-13] MEDS: NEBIVOLOL HCL 5 MG TABLET 20 MG PO ×2 (08:24→17:56)
[2020-08-13] MEDS: SILVERGEL (ELTA) 45 ML 1 APPLIC TOPICAL (08:25)
[2020-08-13] MEDS: ASPIRIN 81 MG ENTERIC TABLET PO (08:25)
[2020-08-13] MEDS: TORSEMIDE 10 MG TABLET PO (08:25)
[2020-08-13] MEDS: POTASSIUM CHLORIDE 20 MEQ TABLET.ER PO (08:25)
[2020-08-13] MEDS: NIFEdipine 30 MG TAB.ER.24 60 MG PO (08:25)
[2020-08-13] MEDS: ACETAMINOPHEN 500 MG TABLET 1000 MG PO (11:09)
[2020-08-13 14:00] VITALS: BP 139/67; PULSE 84; RESP 18; TEMP 36.1; O2SAT 94
--- NOTE | 2020-08-13 15:40 | WPDNEURORHBP ---
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 Patient required diuresis with Bumex. On 08/05 patient experienced left-sided weakness. MRI revealed numerous foci of cortical and subcortical as well as subacute strokes along the posterior frontal, lateral and posterior lateral parietal, posterior inferior and right occipital lobe. Patient is currently being anticoagulated on aspirin and Coumadin. Coumadin dosing is ongoing. Patient much more alert. Patient is animated. Patient able to follow directions. Patient was able to walk greater than 50 feet. Review of Systems Review of Systems: All systems reviewed & are unremarkable except as noted in HPI and below Functional Status Ambulation Ability Ability to Ambulate 10 Feet: Minimum Assistance X 1 Ability to Ambulate 50 Feet With 2 Turns: Minimum Assistance X 1 Ambulation Assistive Devices: Walker, Wheeled Transfers Ability Ability to Transfer In/Out of Chair: Maximum Assistance X 1 Exam Narrative: Exam Narrative: Speech is dysarthric . left visual field loss is noted. heart rate and rhythm is regular. Lungs are clear to auscultation. Abdomen is obese. 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 Right upper extremity strength is 3+ out of 5. Left upper extremity strength is 2 to 3/5. Bilateral lower extremity strength is 3+/5. Patient is at max assistance with bed mobility. Patient is ambulating 50 ft with moderate assistance. Wheelchair mobility is 20 ft with moderate assistance. ADLs are max to total assistance. Patient has improved overall communication. Const: General: cooperative, comfortable, alert and awake Nutritional Appearance: average body habitus Orientation/consciousness: oriented to person and oriented to place Limitations: physical limitations HENMT: Head: normocephalic Ears: hearing grossly normal bilaterally General nose exam: Normal external nose present Face and sinus: normal facial exam Mouth: Yes Normal oral and palatal mucosa present Eyes: Visual Valentine: abnormal by confrontation Alignment and Position: alignment normal Periorbital: periorbital findings normal Eyelids: eyelids normal Conjunctivae: conjunctivae normal Sclera: sclerae normal Cornea: corneas normal Pupils: Equal, round and reactive pupils present EOM: EOMs intact bilaterally Neck: Neck: full ROM, no lymphadenopathy and no meningeal signs Carotids: normal carotid upstroke Lymphatic: no lymphadenopathy noted Resp: Effort & Inspection: normal respiratory effort Auscultation: clear to auscultation bilaterally Cardio: Jugular venous distension: no JVD Rate: regular rate Rhythm: regular rhythm GI: Auscultation: normal bowel sounds Skin: General skin exam: no rashes or lesions noted Neuro: General: oriented to person, oriented to place, no meningeal signs and Unable to assess gait Cranial nerves: Yes Equal, round and reactive pupils present, Yes Bilaterally intact EOM present, Yes Nystagmus not present, Yes facial symmetry, Yes Midline tongue present and Yes Normal hearing present Cognition (Neuro): normal cognition Speech: normal speech Gait exam (Neuro): Unable to assess gait Motor exam (neuro): Abnormal motor strength present ( left hemiparesis) Deep tendon reflexes (DTR's): Right triceps reflex intensity grade: 1+, Left triceps reflex intensity grade: 2+, Rt Biceps (C5, C6): 1+, Left biceps reflex intensity grade: 2+, Right brachioradialis reflex intensity grade: 1+, Left brachioradialis reflex intensity grade: 2+, Right patellar reflex intensity grade: 1+, Left patellar reflex intensity grade: 2+, Righ
[2020-08-13 17:56] VITALS: PULSE 80
[2020-08-13] MEDS: WARFARIN (*PBKC) 5 MG TABLET PO (17:56)
[2020-08-13 20:15] VITALS: BP 131/61; PULSE 85; RESP 24; TEMP 36.6; O2SAT 100
[2020-08-13] MEDS: BISACODYL 10 MG SUPPOSITORY RECTAL (21:45)
[2020-08-13] MEDS: ATORVASTATIN 40 MG TABLET 80 MG PO (21:46)
[2020-08-13] MEDS: MELATONIN 3 MG TABLET PO (21:46)
[2020-08-13 22:00] VITALS: BP 131/61; PULSE 85; RESP 24; TEMP 36.6; O2SAT 100
[2020-08-14] MEDS: ACETAMINOPHEN 500 MG TABLET 1000 MG PO ×2 (01:41→13:30)
[2020-08-14 06:00] VITALS: BP 154/61; PULSE 70; RESP 16; TEMP 36.3; O2SAT 100
[2020-08-14 06:04] LABS: INR 1.6; Prothrombin Time 19.5 Seconds (11.1-14.7)
[2020-08-14] MEDS: POTASSIUM CHLORIDE 20 MEQ TABLET.ER PO (08:26)
[2020-08-14 08:27] VITALS: PULSE 70
[2020-08-14] MEDS: ASPIRIN 81 MG ENTERIC TABLET PO (08:27)
[2020-08-14] MEDS: TORSEMIDE 10 MG TABLET PO (08:27)
[2020-08-14] MEDS: DOXAZOSIN MESYLATE 2 MG TABLET PO (08:27)
[2020-08-14] MEDS: polyethylene glycoL 3350 17 GM POWD.PACK PO (08:27)
[2020-08-14] MEDS: NIFEdipine 30 MG TAB.ER.24 60 MG PO (08:27)
[2020-08-14] MEDS: NEBIVOLOL HCL 5 MG TABLET 20 MG PO ×2 (08:27→16:58)
[2020-08-14] MEDS: SILVERGEL (ELTA) 45 ML 1 APPLIC TOPICAL (09:00)
[2020-08-14 14:00] VITALS: BP 147/68; PULSE 72; RESP 18; TEMP 36.1; O2SAT 97
--- NOTE | 2020-08-14 15:32 | WPDNEURORHBP ---
Subjective Date/time seen: 08/14/20 15:32 Interval history: Rehab diagnosis: bilateral hemispheric infarcts with significant left hemiplegia, left visual field deficits and mild right hemiplegia, cognitive deficits, Patient was seen at [facility] with shortness of breath and found to have right-sided pleural effusion and significant elevated blood pressure being 230/134. Patient required diuresis with Bumex. On 08/05 patient experienced left-sided weakness. MRI revealed numerous foci of cortical and subcortical as well as subacute strokes along the posterior frontal, lateral and posterior lateral parietal, posterior inferior and right occipital lobe. Patient is currently being anticoagulated on aspirin and Coumadin. Coumadin dosing is ongoing. Patient shows ongoing progress. Endurance is improving. Patient does complain of bilateral ear pain. Review of Systems Review of Systems: All systems reviewed & are unremarkable except as noted in HPI and below Functional Status Ambulation Ability Ability to Ambulate 10 Feet: Minimum Assistance X 1 Ability to Ambulate 50 Feet With 2 Turns: Minimum Assistance X 1 Ability to Ambulate 150 Feet: Minimum Assistance X 1 Ambulation Assistive Devices: Walker, Wheeled Transfers Ability Ability to Transfer In/Out of Chair: Maximum Assistance X 1 Exam Narrative: Exam Narrative: Speech is dysarthric . left visual field loss is noted. heart rate and rhythm is regular. Lungs are clear to auscultation. Abdomen is obese. 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 Right upper extremity strength is 3+ out of 5. Left upper extremity strength is 2 to 3/5. Bilateral lower extremity strength is 3+/5. 2+ pedal edema noted. Inspection of the right ear shows no erythema. Left ear cerumen is present and unable to visualize the tympanic membrane. Patient has difficulties with prioritizing and is somewhat of a poor historian. Will follow Objective Data Vital Signs Vital Signs: Vital Signs - 24 hr 08/13/20 17:56 08/13/20 20:15 08/13/20 22:00 Temperature 36.6 C 36.6 C Pulse Rate 80 85 85 Respiratory Rate 24 H 24 H Blood Pressure 131/61 131/61 Pulse Oximetry 100 100 08/14/20 06:00 08/14/20 08:27 08/14/20 14:00 Temperature 36.3 C L 36.1 C L Pulse Rate 70 70 72 Respiratory Rate 16 18 Blood Pressure 154/61 H 147/68 H Pulse Oximetry 100 97 Intake/Output Intake/Output: Intake & Output 08/11/20 08/12/20 08/13/20 08/14/20 23:59 23:59 23:59 23:59 Intake Total 360 1160 600 600 Balance 360 1160 600 600 Meds/Results Medications: Active Medications Generic Name Dose Route Start Last Admin Trade Name Yosvanyq PRN Reason Stop Dose Admin Acetaminophen 1,000 mg 08/09/20 16:38 08/14/20 13:30 Acetaminophen 500 Mg Tablet PO 1,000 mg Q6H PRN Administration Pain, Moderate Hydrocodone Bitart/Acetaminophen 1 tab 08/09/20 16:38 Hydrocodone/Acetaminophen (*Crx) 5-325 Mg Tablet PO Q4H PRN Pain (Scale Score 7-10) Aspirin 81 mg 08/10/20 09:00 08/14/20 08:27 Aspirin 81 Mg Enteric Tablet PO 81 mg DAILY ARINA Administration Atorvastatin Calcium 80 mg 08/09/20 21:00 08/13/20 21:46 Atorvastatin 40 Mg Tablet PO 80 mg HS ARINA Administration Bisacodyl 10 mg 08/13/20 21:00 08/13/20 21:45 Bisacodyl 10 Mg Suppository RECTAL 10 mg HS ARINA Administration Doxazosin Mesylate 2 mg 08/10/20 09:00 08/14/20 08:27 Doxazosin Mesylate 2 Mg Tablet PO 2 mg DAILY ARINA Administration Melatonin 3 mg 08/10/20 21:00 08/13/20 21:46 Melatonin 3 Mg Tablet PO 3 mg HS ARINA Administration Nebivolol 20 mg 08/11/20 17:00 08/14/20 08:27 Nebivolol Hcl 5 Mg Tablet PO 20 mg 0800,1700 ARINA Administration Nifedipine 60 mg 08/10/20 09:00 08/14/20 08:27 Nifedipine 30 Mg Tab.Er.24 PO 60 mg DAILY ARINA Administration Polyethylene Glycol 17 gm 08/12/20 09:00 08/14/20 08:27
[2020-08-14 16:58] VITALS: PULSE 72
[2020-08-14] MEDS: WARFARIN (*PBKC) 5 MG TABLET PO (16:58)
[2020-08-14] MEDS: ATORVASTATIN 40 MG TABLET 80 MG PO (20:06)
[2020-08-14] MEDS: BISACODYL 10 MG SUPPOSITORY RECTAL (20:06)
[2020-08-14 20:53] VITALS: BP 141/50; PULSE 78; RESP 18; TEMP 36.6; O2SAT 100
[2020-08-15 05:35] VITALS: BP 161/65; PULSE 76; RESP 18; TEMP 36.4; O2SAT 97
[2020-08-15 08:56] VITALS: PULSE 76
[2020-08-15] MEDS: NEBIVOLOL HCL 5 MG TABLET 20 MG PO ×2 (08:56→17:54)
[2020-08-15] MEDS: ASPIRIN 81 MG ENTERIC TABLET PO (08:56)
[2020-08-15] MEDS: TORSEMIDE 10 MG TABLET PO (08:56)
[2020-08-15] MEDS: polyethylene glycoL 3350 17 GM POWD.PACK PO (08:56)
[2020-08-15] MEDS: DOXAZOSIN MESYLATE 2 MG TABLET PO (08:56)
[2020-08-15] MEDS: POTASSIUM CHLORIDE 20 MEQ TABLET.ER PO (08:56)
[2020-08-15] MEDS: NIFEdipine 30 MG TAB.ER.24 60 MG PO (08:56)
[2020-08-15] MEDS: SILVERGEL (ELTA) 45 ML 1 APPLIC TOPICAL (09:00)
[2020-08-15 10:05] LABS: INR 1.6; Prothrombin Time 19.8 Seconds (11.1-14.7)
--- OUTSIDE RECORDS SUMMARY | 2020-08-15 10:49 | XMS_ITS ---
:1950 Author Organization [facility] Address [address] [place] [id number] [place] [id number] Care Team Providers Name Role Phone MD Beverly Primary Care Provider Reason for Referral Imaging (Emergency) Status Reason Specialty Diagnoses / Referred By Contact Refe rred To Procedures Contact New Request RADIOLOGY Procedures Jayden Telemetry A CT HEAD WO CON ONE [place], [place] [address] Phone: Imaging (Urgent) Status Reason Specialty Diagnoses / Referred By Contact Refe rred To Procedures Contact New Request RADIOLOGY Procedures Jennifer Reyes MD MRA NECK WO CON ONE [facility] [place], [place] [address] Phone: Imaging (Urgent) Status Reason Specialty Diagno
[2020-08-15 14:00] VITALS: BP 118/57; PULSE 72; RESP 14; TEMP 36.3; O2SAT 100
--- NOTE | 2020-08-15 15:36 | PCPTNOTE ---
Emily Crawford PTA completed an inpatient rehab wheelchair evaluation on [facility] on 08/15/2020. The patient is unable to safely and independently ambulate household distances due to their current impairments. Their diagnosis is CVA and their impairments include decreased strength, decreased endurance, decreased range of motion, decreased balance, lower extremity weakness, and ataxia. Desi's weight bearing status is weight-bearing as tolerated on the bilateral lower legs. The patient demonstrates significant functional mobility limitations that impair their ability to participate in mobility-related activities of daily living (MRADLs), including toileting, feeding, dressing, grooming, and bathing in the customary locations in the home. These limitations cannot be sufficiently resolved by the use of an appropriately fitted cane or walker. It is recommended that the patient utilize a wheelchair for functional mobility within the home in order to facilitate optimal safety, independence and participation in all MRADL's and adequately access their home environment on a regular basis. The patient's home provides adequate access between rooms, maneuvering space, and surfaces to accommodate the recommended wheelchair. The use of a wheelchair for functional mobility is strongly recommended and the patient is receptive to using the wheelchair. The use of this wheelchair will significantly improve the patient's ability to participate in MRADLS and the patient will use it on a regular basis in the home. This will facilitate optimal safety, independence, and participation. The patient has demonstrated sufficient physical and mental capabilities needed to safely propel a manual wheelchair that is provided in the home during a typical day. Recommended Wheelchair Frame: STANDARD Recommended Wheelchair Size: 18 X 18 Recommended Wheelchair Cushion: STANDARD Wheelchair Leg Recommendations: BILATERAL ELEVATING SWING AWAY LEG RESTS - Elevating legrests are recommended because the patient has significant edema of the lower extremities that requires an elevating legrest. - Anti-tippers are recommended due to patient demonstrating increased risk for falls. They would benefit from anti-tippers with added safety and stabilization. - Adjustable arm height is recommended because the patient requires an arm height that is different than that which is available using non-adjustable arms. The patient spends at least 2 hours per day in the wheelchair. Emily Crawford PTA 08/15/20 Evaluating Therapist Date I agree with and certify that the above recommendation is medically necessary. Referring Physician Date I agree with and certify that the above recommendation is medically necessary. Referring Physician Date
--- NOTE | 2020-08-15 16:28 | WPDNEURORHBP ---
Subjective Date/time seen: 08/15/20 16:28 Interval history: Rehab diagnosis: bilateral hemispheric infarcts with significant left hemiplegia, left visual field deficits and mild right hemiplegia, cognitive deficits, Patient was seen at [facility] with shortness of breath and found to have right-sided pleural effusion and significant elevated blood pressure being 230/134. Patient required diuresis with Bumex. On 08/05 patient experienced left-sided weakness. MRI revealed numerous foci of cortical and subcortical as well as subacute strokes along the posterior frontal, lateral and posterior lateral parietal, posterior inferior and right occipital lobe. Patient is currently being anticoagulated on aspirin and Coumadin. Coumadin dosing is ongoing. Patient shows ongoing progress. Endurance is improving. Patient voices no complaints. Review of Systems Review of Systems: All systems reviewed & are unremarkable except as noted in HPI and below Functional Status Ambulation Ability Ability to Ambulate 10 Feet: Minimum Assistance X 1 Ability to Ambulate 50 Feet With 2 Turns: Minimum Assistance X 1 Ability to Ambulate 150 Feet: Minimum Assistance X 1 Ambulation Assistive Devices: Walker, Wheeled Transfers Ability Ability to Transfer In/Out of Chair: Maximum Assistance X 1 Exam Narrative: Exam Narrative: Speech is dysarthric . left visual field loss is noted. heart rate and rhythm is regular. Lungs are clear to auscultation. Abdomen is obese. 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 Right upper extremity strength is 3+ out of 5. Left upper extremity strength is 2 to 3/5. Bilateral lower extremity strength is 3+/5. 2+ pedal edema noted. Endurance is improving. Objective Data Vital Signs Vital Signs: Vital Signs - 24 hr 08/14/20 16:58 08/14/20 20:53 08/15/20 05:35 Temperature 36.6 C 36.4 C Pulse Rate 72 78 76 Respiratory Rate 18 18 Blood Pressure 141/50 H 161/65 H Pulse Oximetry 100 97 08/15/20 08:56 08/15/20 14:00 Temperature 36.3 C L Pulse Rate 76 72 Respiratory Rate 14 Blood Pressure 118/57 L Pulse Oximetry 100 Intake/Output Intake/Output: Intake & Output 08/12/20 08/13/20 08/14/20 08/15/20 23:59 23:59 23:59 23:59 Intake Total 1160 600 840 480 Balance 1160 600 840 480 Meds/Results Medications: Active Medications Generic Name Dose Route Start Last Admin Trade Name Freq PRN Reason Stop Dose Admin Acetaminophen 1,000 mg 08/09/20 16:38 08/14/20 13:30 Acetaminophen 500 Mg Tablet PO 1,000 mg Q6H PRN Administration Pain, Moderate Hydrocodone Bitart/Acetaminophen 1 tab 08/09/20 16:38 Hydrocodone/Acetaminophen (*Crx) 5-325 Mg Tablet PO Q4H PRN Pain (Scale Score 7-10) Aspirin 81 mg 08/10/20 09:00 08/15/20 08:56 Aspirin 81 Mg Enteric Tablet PO 81 mg DAILY ARINA Administration Atorvastatin Calcium 80 mg 08/15/20 17:00 Atorvastatin 40 Mg Tablet PO DAILY@1700 ARINA Bisacodyl 10 mg 08/13/20 21:00 08/14/20 20:06 Bisacodyl 10 Mg Suppository RECTAL 10 mg HS ARINA Administration Doxazosin Mesylate 2 mg 08/10/20 09:00 08/15/20 08:56 Doxazosin Mesylate 2 Mg Tablet PO 2 mg DAILY ARINA Administration Melatonin 3 mg 08/10/20 21:00 08/14/20 20:06 Melatonin 3 Mg Tablet PO Not Given HS ARINA Nebivolol 20 mg 08/11/20 17:00 08/15/20 08:56 Nebivolol Hcl 5 Mg Tablet PO 20 mg 0800,1700 ARINA Administration Nifedipine 60 mg 08/10/20 09:00 08/15/20 08:56 Nifedipine 30 Mg Tab.Er.24 PO 60 mg DAILY ARINA Administration Polyethylene Glycol 17 gm 08/12/20 09:00 08/15/20 08:56 Polyethylene Glycol 3350 17 Gm Powd.Pack PO 17 gm QAM ARINA Administration Potassium Chloride 20 meq 08/10/20 09:00 08/15/20 08:56 Potassium Chloride 20 Meq Tablet.Er PO 20 meq DAILY ARINA Administration Senna 8.6 mg 08/09/20 16:38 Sennosides 8.6 Mg Tablet PO
[2020-08-15 17:54] VITALS: PULSE 70
[2020-08-15] MEDS: ATORVASTATIN 40 MG TABLET 80 MG PO (17:54)
[2020-08-15] MEDS: ACETAMINOPHEN 500 MG TABLET 1000 MG PO (17:54)
[2020-08-15] MEDS: WARFARIN (*PBKC) 5 MG TABLET PO (17:54)
[2020-08-15 21:08] VITALS: BP 133/50; PULSE 75; RESP 18; TEMP 36.4; O2SAT 99
[2020-08-16] VITALS (8 sets, daily range): BP systolic 134–149; BP diastolic 61–62; PULSE 70–84; RESP 18; TEMP 36.3–36.5; O2SAT 100
[2020-08-16 05:54] LABS: INR 1.8; Prothrombin Time 21.3 Seconds (11.1-14.7)
[2020-08-16] MEDS: TORSEMIDE 10 MG TABLET PO (09:33)
[2020-08-16] MEDS: POTASSIUM CHLORIDE 20 MEQ TABLET.ER PO (09:33)
[2020-08-16] MEDS: NIFEdipine 30 MG TAB.ER.24 60 MG PO (09:33)
[2020-08-16] MEDS: polyethylene glycoL 3350 17 GM POWD.PACK PO (09:33)
[2020-08-16] MEDS: NEBIVOLOL HCL 5 MG TABLET 20 MG PO ×2 (09:33→17:43)
[2020-08-16] MEDS: SILVERGEL (ELTA) 45 ML 1 APPLIC TOPICAL (09:34)
[2020-08-16] MEDS: DOXAZOSIN MESYLATE 2 MG TABLET PO (09:34)
[2020-08-16] MEDS: ASPIRIN 81 MG ENTERIC TABLET PO (09:34)
--- NOTE | 2020-08-16 09:52 | WPDNEURORHBP ---
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 Patient required diuresis with Bumex. On 08/05 patient experienced left-sided weakness. MRI revealed numerous foci of cortical and subcortical as well as subacute strokes along the posterior frontal, lateral and posterior lateral parietal, posterior inferior and right occipital lobe. Patient is currently being anticoagulated on aspirin and Coumadin. Coumadin dosing is ongoing. Patient shows ongoing progress. Endurance is improving. Patient voices no complaints. Patient seen in bed during ST session. Response in communication is delayed but is improving. Diet may be upgraded Review of Systems Review of Systems: All systems reviewed & are unremarkable except as noted in HPI and below Functional Status Ambulation Ability Ability to Ambulate 10 Feet: Minimum Assistance X 1 Ability to Ambulate 50 Feet With 2 Turns: Minimum Assistance X 1 Ability to Ambulate 150 Feet: Minimum Assistance X 1 Ambulation Assistive Devices: Walker, Wheeled Transfers Ability Ability to Transfer In/Out of Chair: Maximum Assistance X 1 Exam Narrative: Exam Narrative: Speech is dysarthric . left visual field loss is noted. heart rate and rhythm is regular. Lungs are clear to auscultation. Abdomen is obese. 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 Right upper extremity strength is 4- out of 5. Left upper extremity strength is improving to 3/5. Bilateral lower extremity strength is 3+/5 to 4-. 2+ pedal edema noted. Endurance is improving. Speech volume and clarity is improving Objective Data Vital Signs Vital Signs: Vital Signs - 24 hr 08/15/20 14:00 08/15/20 17:54 08/15/20 21:08 Temperature 36.3 C L 36.4 C Pulse Rate 72 70 75 Respiratory Rate 14 18 Blood Pressure 118/57 L 133/50 L Pulse Oximetry 100 99 08/16/20 05:21 08/16/20 09:33 Temperature 36.3 C L Pulse Rate 70 70 Respiratory Rate 18 Blood Pressure 149/62 H Pulse Oximetry 100 Intake/Output Intake/Output: Intake & Output 03/30/21 08/14/20 08/15/20 08/16/20 23:59 23:59 23:59 23:59 Intake Total 600 840 720 240 Balance 600 840 720 240 Meds/Results Medications: Active Medications Generic Name Dose Route Start Last Admin Trade Name Freq PRN Reason Stop Dose Admin Acetaminophen 1,000 mg 08/09/20 16:38 08/15/20 17:54 Acetaminophen 500 Mg Tablet PO 1,000 mg Q6H PRN Administration Pain, Moderate Hydrocodone Bitart/Acetaminophen 1 tab 08/09/20 16:38 Hydrocodone/Acetaminophen (*Crx) 5-325 Mg Tablet PO Q4H PRN Pain (Scale Score 7-10) Aspirin 81 mg 08/10/20 09:00 08/16/20 09:34 Aspirin 81 Mg Enteric Tablet PO 81 mg DAILY ARINA Administration Atorvastatin Calcium 80 mg 08/15/20 17:00 08/15/20 17:54 Atorvastatin 40 Mg Tablet PO 80 mg DAILY@1700 ARINA Administration Bisacodyl 10 mg 08/13/20 21:00 08/15/20 20:07 Bisacodyl 10 Mg Suppository RECTAL Not Given HS ARINA Doxazosin Mesylate 2 mg 08/10/20 09:00 08/16/20 09:34 Doxazosin Mesylate 2 Mg Tablet PO 2 mg DAILY ARINA Administration Melatonin 3 mg 08/10/20 21:00 08/15/20 20:07 Melatonin 3 Mg Tablet PO Not Given HS ARINA Nebivolol 20 mg 08/11/20 17:00 08/16/20 09:33 Nebivolol Hcl 5 Mg Tablet PO 20 mg 0800,1700 ARINA Administration Nifedipine 60 mg 08/10/20 09:00 08/16/20 09:33 Nifedipine 30 Mg Tab.Er.24 PO 60 mg DAILY ARINA Administration Polyethylene Glycol 17 gm 08/12/20 09:00 08/16/20 09:33 Polyethylene Glycol 3350 17 Gm Powd.Pack PO 17 gm QAM ARINA Administration Potassium C
--- NOTE | 2020-08-16 12:54 | PCDIET ---
Nutrition Follow-Up Complete: Nutrition Diagnosis: Increased protein intake related to wound as evidenced by unstageable coccyx pressure ulcer. Nutrition Goal: Patient to consume 75% or more of meals on current diet order. Goal in progress. Average intake since 08/13/20 has been 68% of recorded meals. Daughter states patient has been taking most of the Ensure Enlive supplements provided. Diet is heart healthy, minced and moist; however, patient with CRYSTAL GAZER at time of visit and being evaluated for potential diet progression. Last recorded weight is 73.6 kg. Recommend obtaining new weight. Bowel Motility: Last documented BM on 08/13/20. Patient has prn orders for Dulcolax and Senna. Labs Reviewed: No new chemistry. Meds Noted: Lipitor, Cardura, Bystolic, Miralax, Nifedipine, KCl, Coumadin, Demadex Additional Notes: Unstageable wound to coccyx. Recommend continuing Ensure Enlive with meals for additional 1050kcal and 60g protein daily, if accepted. Nutrition Monitoring and Evaluation: Follow up every 5 days.
[2020-08-16] MEDS: ACETAMINOPHEN 500 MG TABLET 1000 MG PO (15:22)
[2020-08-16] MEDS: WARFARIN (*PBKC) 5 MG TABLET PO (17:43)
[2020-08-16] MEDS: ATORVASTATIN 40 MG TABLET 80 MG PO (17:44)
[2020-08-16] MEDS: BISACODYL 10 MG SUPPOSITORY RECTAL (21:40)
[2020-08-17] MEDS: ACETAMINOPHEN 500 MG TABLET 1000 MG PO ×2 (00:27→22:04)
[2020-08-17 05:12] LABS: Basophils Percent Auto 0.8 % (0.2-1.2); Eosinophils Absolute Auto 0.1 K/mm3 (0-0.3); Eosinophils Percent Auto 2.8 % (0-4.4); Hematocrit 34.3 % (37.0-47.0); Immature Granulocyte Absolute 0.01 K/mm3 (0.00-0.031); Immature Granulocyte Percent A 0.2 % (0-0.5); Lymphocytes Percent Auto 25.5 % (18.3-44.2); Mean Corpuscular HGB Conc 32.1 g/dl (32-36); Mean Corpuscular Hemoglobin 26.9 pg (26-34); Mean Corpuscular Volume 83.9 fl (80-100); Mean Platelet Volume 10.7 fl (7.4-10.4); Monocytes Absolute Auto 0.5 K/mm3 (0.1-0.6); Monocytes Percent Auto 9.6 % (2.6-8.5); Neutrophils Absolute Auto 2.9 K/mm3 (1.3-6.7); Neutrophils Percent Auto 61.1 % (45.5-73.1); Platelet Count Result 339 k/mm3 (150-375); Red Blood Count 4.09 M/mm3 (4.2-5.4); Red Cell Distribution Width 14.4 % (11.5-14.5); White Blood Count 4.7 K/mm3 (4.5-10.0)
[2020-08-17 05:33] VITALS: BP 157/62; PULSE 66; RESP 16; TEMP 36.4; O2SAT 99
[2020-08-17 05:37] LABS: Anion Gap 3 mmol/L (8-16); Blood Urea Nitrogen 22 mg/dL (7-17); Carbon Dioxide 29 mmol/L (22-30); Chloride 106 mmol/L (98-107); Estimated CRCL calculation 22 ml/min; Estimated Glomerular Filt Rate 32; Glucose 86 mg/dL (65-105); Potassium 3.8 mmol/L (3.4-5.0); Sodium 138 mmol/L (137-145)
[2020-08-17 06:17] LABS: Prothrombin Time 23.5 Seconds (11.1-14.7)
[2020-08-17] MEDS: POTASSIUM CHLORIDE 20 MEQ TABLET.ER PO (07:52)
[2020-08-17 07:53] VITALS: PULSE 72
[2020-08-17] MEDS: NIFEdipine 30 MG TAB.ER.24 60 MG PO (07:53)
[2020-08-17] MEDS: ASPIRIN 81 MG ENTERIC TABLET PO (07:53)
[2020-08-17] MEDS: TORSEMIDE 10 MG TABLET PO (07:53)
[2020-08-17] MEDS: NEBIVOLOL HCL 5 MG TABLET 20 MG PO ×2 (07:53→16:11)
[2020-08-17] MEDS: DOXAZOSIN MESYLATE 2 MG TABLET PO (07:53)
[2020-08-17] MEDS: SILVERGEL (ELTA) 45 ML 1 APPLIC TOPICAL (07:57)
--- NOTE | 2020-08-17 09:53 | WPDNEURORHBP ---
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 with shortness of breath and found to have right-sided pleural effusion and significant elevated blood pressure being 230/134. Patient required diuresis with Bumex. On 08/05 patient experienced left-sided weakness. MRI revealed numerous foci of cortical and subcortical as well as subacute strokes along the posterior frontal, lateral and posterior lateral parietal, posterior inferior and right occipital lobe. Patient is currently being anticoagulated on aspirin and Coumadin. Coumadin dosing is ongoing. Patient shows ongoing progress. Endurance is improving. Patient voices no complaints.Patient is more vocal. Review of Systems Review of Systems: All systems reviewed & are unremarkable except as noted in HPI and below Functional Status Ambulation Ability Ability to Ambulate 10 Feet: Minimum Assistance X 1 Ability to Ambulate 50 Feet With 2 Turns: Minimum Assistance X 1 Ability to Ambulate 150 Feet: Minimum Assistance X 1 Ambulation Assistive Devices: Walker, Wheeled Transfers Ability Ability to Transfer In/Out of Chair: Maximum Assistance X 1 Exam Narrative: Exam Narrative: Speech is dysarthric . left visual field loss is noted. heart rate and rhythm is regular. Lungs are clear to auscultation. Abdomen is obese. 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 Right upper extremity strength is 4- out of 5. Left upper extremity strength is improving to 3/5. Bilateral lower extremity strength is 3+/5 to 4-.No pedal edema present today Endurance is improving. Speech volume and clarity is improving Objective Data Vital Signs Vital Signs: Vital Signs - 24 hr 08/16/20 14:00 08/16/20 15:22 08/16/20 17:43 Temperature 36.4 C L 36.4 C L Pulse Rate 76 76 Respiratory Rate 18 Blood Pressure 134/61 Pulse Oximetry 100 08/16/20 20:00 08/16/20 21:09 08/17/20 05:33 Temperature 36.5 C 36.4 C L Pulse Rate 84 84 66 Respiratory Rate 18 18 16 Blood Pressure 148/61 H 157/62 H Pulse Oximetry 100 100 99 08/17/20 07:53 Temperature Pulse Rate 72 Respiratory Rate Blood Pressure Pulse Oximetry Intake/Output Intake/Output: Intake & Output 03/31/21 04/01/21 04/02/21 04/03/21 23:59 23:59 23:59 23:59 Intake Total 840 720 720 240 Balance 840 720 720 240 Meds/Results Medications: Active Medications Generic Name Dose Route Start Last Admin Trade Name Freq PRN Reason Stop Dose Admin Acetaminophen 1,000 mg 08/09/20 16:38 08/17/20 00:27 Acetaminophen 500 Mg Tablet PO 1,000 mg Q6H PRN Administration Pain, Moderate Hydrocodone Bitart/Acetaminophen 1 tab 08/09/20 16:38 Hydrocodone/Acetaminophen (*Crx) 5-325 Mg Tablet PO Q4H PRN Pain (Scale Score 7-10) Aspirin 81 mg 08/10/20 09:00 08/17/20 07:53 Aspirin 81 Mg Enteric Tablet PO 81 mg DAILY ARINA Administration Atorvastatin Calcium 80 mg 08/15/20 17:00 08/16/20 17:44 Atorvastatin 40 Mg Tablet PO 80 mg DAILY@1700 ARINA Administration Bisacodyl 10 mg 08/13/20 21:00 08/16/20 21:40 Bisacodyl 10 Mg Suppository RECTAL 10 mg HS ARINA Administration Doxazosin Mesylate 2 mg 08/10/20 09:00 08/17/20 07:53 Doxazosin Mesylate 2 Mg Tablet PO 2 mg DAILY ARINA Administration Melatonin 3 mg 08/10/20 21:00 08/16/20 21:40 Melatonin 3 Mg Tablet PO Not Given HS ARINA Nebivolol 20 mg 08/11/20 17:00 08/17/20 07:53 Nebivolol Hcl 5 Mg Tablet PO 20 mg 0800,1700 ARINA Administration Nifedipine 60 mg 08/10/20 09:00 08/17/20 07:53 Nifedipine 30 Mg Tab.Er.24 PO 60 mg DAILY ARINA Administration Polyethylene Glycol 17 gm 08/12/20 09:00 08/17/20 07:54 Polyethylene Glycol 3350 17 Gm Powd.
[2020-08-17 14:00] VITALS: BP 142/61; PULSE 75; RESP 18; TEMP 37.1; O2SAT 100
[2020-08-17 16:11] VITALS: PULSE 76
[2020-08-17] MEDS: WARFARIN (*PBKC) 5 MG TABLET PO (16:11)
[2020-08-17] MEDS: ATORVASTATIN 40 MG TABLET 80 MG PO (16:12)
[2020-08-17 20:05] VITALS: PULSE 84; RESP 16; O2SAT 99
[2020-08-17 20:28] VITALS: BP 135/54; PULSE 84; RESP 16; TEMP 36.7; O2SAT 99
[2020-08-17] MEDS: MELATONIN 3 MG TABLET PO (22:01)
[2020-08-18] MEDS: ACETAMINOPHEN 500 MG TABLET 1000 MG PO ×2 (04:55→17:48)
[2020-08-18 05:01] LABS: INR 2.1; Prothrombin Time 24.2 Seconds (11.1-14.7)
[2020-08-18 06:00] VITALS: BP 156/66; PULSE 69; RESP 16; TEMP 36.6; O2SAT 100
[2020-08-18 07:54] VITALS: PULSE 72
[2020-08-18] MEDS: DOXAZOSIN MESYLATE 2 MG TABLET PO (07:54)
[2020-08-18] MEDS: NEBIVOLOL HCL 5 MG TABLET 20 MG PO ×2 (07:54→17:04)
[2020-08-18] MEDS: TORSEMIDE 10 MG TABLET PO (07:54)
[2020-08-18] MEDS: ASPIRIN 81 MG ENTERIC TABLET PO (07:54)
[2020-08-18] MEDS: NIFEdipine 30 MG TAB.ER.24 60 MG PO (07:55)
[2020-08-18] MEDS: POTASSIUM CHLORIDE 20 MEQ TABLET.ER PO (07:55)
[2020-08-18] MEDS: SILVERGEL (ELTA) 45 ML 1 APPLIC TOPICAL (07:56)
--- NOTE | 2020-08-18 09:42 | WPDNEURORHBP ---
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 with shortness of breath and found to have right-sided pleural effusion and significant elevated blood pressure being 230/134. Patient required diuresis with Bumex. On 08/05 patient experienced left-sided weakness. MRI revealed numerous foci of cortical and subcortical as well as subacute strokes along the posterior frontal, lateral and posterior lateral parietal, posterior inferior and right occipital lobe. Patient is currently being anticoagulated on aspirin and Coumadin. Coumadin dosing is ongoing. Patient shows ongoing progress. Endurance is improving. Patient voices no complaints.Patient is more vocal. Review of Systems Review of Systems: All systems reviewed & are unremarkable except as noted in HPI and below Functional Status Ambulation Ability Ability to Ambulate 10 Feet: Minimum Assistance X 1 Ability to Ambulate 50 Feet With 2 Turns: Minimum Assistance X 1 Ability to Ambulate 150 Feet: Minimum Assistance X 1 Ambulation Assistive Devices: Walker, Wheeled Transfers Ability Ability to Transfer In/Out of Chair: Maximum Assistance X 1 Exam Narrative: Exam Narrative: Speech is dysarthric . left visual field loss is noted. Patient is compensating for left visual loss by scanning. heart rate and rhythm is regular. Lungs are clear to auscultation. Abdomen is obese. 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 Right upper extremity strength is 4- out of 5. Left upper extremity strength is improving to 3/5. Bilateral lower extremity strength is 3+/5 to 4-.No pedal edema present today Endurance is improving. Speech volume and clarity is improving Objective Data Vital Signs Vital Signs: Vital Signs - 24 hr 08/17/20 14:00 08/17/20 16:11 08/17/20 20:05 Temperature 37.1 C Pulse Rate 75 76 84 Respiratory Rate 18 16 Blood Pressure 142/61 H Pulse Oximetry 100 99 08/17/20 20:28 08/18/20 06:00 08/18/20 07:54 Temperature 36.7 C 36.6 C Pulse Rate 84 69 72 Respiratory Rate 16 16 Blood Pressure 135/54 L 156/66 H Pulse Oximetry 99 100 Intake/Output Intake/Output: Intake & Output 04/01/08/16/20 08/17/20 08/18/20 23:59 23:59 23:59 23:59 Intake Total 720 720 720 240 Balance 720 720 720 240 Meds/Results Medications: Active Medications Generic Name Dose Route Start Last Admin Trade Name Freq PRN Reason Stop Dose Admin Acetaminophen 1,000 mg 08/09/20 16:38 08/18/20 04:55 Acetaminophen 500 Mg Tablet PO 1,000 mg Q6H PRN Administration Pain, Moderate Hydrocodone Bitart/Acetaminophen 1 tab 08/09/20 16:38 Hydrocodone/Acetaminophen (*Crx) 5-325 Mg Tablet PO Q4H PRN Pain (Scale Score 7-10) Aspirin 81 mg 08/10/20 09:00 08/18/20 07:54 Aspirin 81 Mg Enteric Tablet PO 81 mg DAILY ARINA Administration Atorvastatin Calcium 80 mg 08/15/20 17:00 08/17/20 16:12 Atorvastatin 40 Mg Tablet PO 80 mg DAILY@1700 ARINA Administration Bisacodyl 10 mg 08/13/20 21:00 08/17/20 22:04 Bisacodyl 10 Mg Suppository RECTAL Not Given HS ARINA Doxazosin Mesylate 2 mg 08/10/20 09:00 08/18/20 07:54 Doxazosin Mesylate 2 Mg Tablet PO 2 mg DAILY ARINA Administration Melatonin 3 mg 08/10/20 21:00 08/17/20 22:01 Melatonin 3 Mg Tablet PO 3 mg HS ARINA Administration Nebivolol 20 mg 08/11/20 17:00 08/18/20 07:54 Nebivolol Hcl 5 Mg Tablet PO 20 mg 0800,1700 ARINA Administration Nifedipine 60 mg 08/10/20 09:00 08/18/20 07:55 Nifedipine 30 Mg Tab.Er.24 PO 60 mg DAILY ARINA Administration Polyethylene Glycol 17 gm 08/12/20 09:00 08/18/20 07:55 Polyethylene Glycol 3350 17 Gm Powd.Pack PO [facility] [place] [facility] Potassium Chloride
[2020-08-18 14:00] VITALS: BP 138/58; PULSE 75; RESP 18; TEMP 36.6; O2SAT 100
[2020-08-18 17:04] VITALS: PULSE 76
[2020-08-18] MEDS: WARFARIN (*PBKC) 5 MG TABLET PO (17:04)
[2020-08-18] MEDS: ATORVASTATIN 40 MG TABLET 80 MG PO (17:04)
[2020-08-18 22:00] VITALS: BP 126/47; PULSE 78; RESP 16; TEMP 36.5; O2SAT 97
[2020-08-19 05:49] LABS: INR 2.1; Prothrombin Time 24.5 Seconds (11.1-14.7)
[2020-08-19 06:00] VITALS: BP 154/75; PULSE 83; RESP 16; TEMP 36.7; O2SAT 100
[2020-08-19 08:33] VITALS: PULSE 80
[2020-08-19] MEDS: POTASSIUM CHLORIDE 20 MEQ TABLET.ER PO (08:33)
[2020-08-19] MEDS: NIFEdipine 30 MG TAB.ER.24 60 MG PO (08:33)
[2020-08-19] MEDS: TORSEMIDE 10 MG TABLET PO (08:33)
[2020-08-19] MEDS: ASPIRIN 81 MG ENTERIC TABLET PO (08:33)
[2020-08-19] MEDS: NEBIVOLOL HCL 5 MG TABLET 20 MG PO ×2 (08:33→17:16)
[2020-08-19] MEDS: DOXAZOSIN MESYLATE 2 MG TABLET PO (08:33)
[2020-08-19] MEDS: SILVERGEL (ELTA) 45 ML 1 APPLIC TOPICAL (08:34)
[2020-08-19] MEDS: ACETAMINOPHEN 500 MG TABLET 1000 MG PO ×2 (13:24→21:26)
[2020-08-19 14:00] VITALS: BP 141/58; PULSE 78; RESP 18; TEMP 36.8; O2SAT 98
--- NOTE | 2020-08-19 16:48 | WPDNEURORHBP ---
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 Patient required diuresis with Bumex. On 08/05 patient experienced left-sided weakness. MRI revealed numerous foci of cortical and subcortical as well as subacute strokes along the posterior frontal, lateral and posterior lateral parietal, posterior inferior and right occipital lobe. Patient is currently being anticoagulated on aspirin and Coumadin. Coumadin dosing is ongoing. Patient shows ongoing progress. Endurance is improving. Patient voices no complaints.Patient is more vocal. Patient is eating 100 percent Review of Systems Review of Systems: All systems reviewed & are unremarkable except as noted in HPI and below Functional Status Ambulation Ability Ability to Ambulate 10 Feet: Minimum Assistance X 1 Ability to Ambulate 50 Feet With 2 Turns: Minimum Assistance X 1 Ability to Ambulate 150 Feet: Minimum Assistance X 1 Ambulation Assistive Devices: Walker, Wheeled Transfers Ability Ability to Transfer In/Out of Chair: Maximum Assistance X 1 Exam Narrative: Exam Narrative: Speech is dysarthric . left visual field loss is noted. Patient is compensating for left visual loss by scanning. heart rate and rhythm is regular. Lungs are clear to auscultation. Abdomen is obese. 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 Right upper extremity strength is 4- out of 5. Left upper extremity strength is improving to 3/5. Bilateral lower extremity strength is 3+/5 to 4-.No pedal edema present today Endurance is improving. Speech volume and clarity is improving Gait min assist FWW Objective Data Vital Signs Vital Signs: Vital Signs - 24 hr 08/18/20 17:04 08/18/20 22:00 08/19/20 06:00 Temperature 36.5 C 36.7 C Pulse Rate 76 78 83 Respiratory Rate 16 16 Blood Pressure 126/47 L 154/75 H Pulse Oximetry 97 100 08/19/20 08:33 08/19/20 14:00 Temperature 36.8 C Pulse Rate 80 78 Respiratory Rate 18 Blood Pressure 141/58 H Pulse Oximetry 98 Intake/Output Intake/Output: Intake & Output 04/02/21 08/17/20 08/18/20 08/19/20 23:59 23:59 23:59 23:59 Intake Total 720 720 720 480 Balance 720 720 720 480 Meds/Results Medications: Active Medications Generic Name Dose Route Start Last Admin Trade Name Freq PRN Reason Stop Dose Admin Acetaminophen 1,000 mg 08/09/20 16:38 08/19/20 13:24 Acetaminophen 500 Mg Tablet PO 1,000 mg Q6H PRN Administration Pain, Moderate Hydrocodone Bitart/Acetaminophen 1 tab 08/09/20 16:38 Hydrocodone/Acetaminophen (*Crx) 5-325 Mg Tablet PO Q4H PRN Pain (Scale Score 7-10) Aspirin 81 mg 08/10/20 09:00 08/19/20 08:33 Aspirin 81 Mg Enteric Tablet PO 81 mg DAILY ARINA Administration Atorvastatin Calcium 80 mg 08/15/20 17:00 08/18/20 17:04 Atorvastatin 40 Mg Tablet PO 80 mg DAILY@1700 ARINA Administration Bisacodyl 10 mg 08/13/20 21:00 08/18/20 20:33 Bisacodyl 10 Mg Suppository RECTAL Not Given HS ARINA Doxazosin Mesylate 2 mg 08/10/20 09:00 08/19/20 08:33 Doxazosin Mesylate 2 Mg Tablet PO 2 mg DAILY ARINA Administration Melatonin 3 mg 08/10/20 21:00 08/18/20 20:33 Melatonin 3 Mg Tablet PO Not Given HS ARINA Nebivolol 20 mg 08/11/20 17:00 08/19/20 08:33 Nebivolol Hcl 5 Mg Tablet PO 20 mg 0800,1700 ARINA Administration Nifedipine 60 mg 08/10/20 09:00 08/19/20 08:33 Nifedipine 30 Mg Tab.Er.24 PO 60 mg DAILY ARINA Administration Polyethylene Glycol 17 gm 08/12/20 09:00 08/19/20 08:34 Polyethylene Glycol 3350 17 Gm Powd.Pack PO Not Given [facility] Ike
[2020-08-19] MEDS: WARFARIN (*PBKC) 5 MG TABLET PO (17:15)
[2020-08-19] MEDS: ATORVASTATIN 40 MG TABLET 80 MG PO (17:15)
[2020-08-19 17:16] VITALS: PULSE 76
[2020-08-19 22:00] VITALS: BP 135/51; PULSE 89; RESP 16; TEMP 37.1; O2SAT 100
[2020-08-19] MEDS: MELATONIN 3 MG TABLET PO (23:39)
[2020-08-20] VITALS (7 sets, daily range): BP systolic 145–153; BP diastolic 61–65; PULSE 69–86; RESP 16–18; TEMP 36.1–36.8; O2SAT 98–100
[2020-08-20 05:42] LABS: INR 2.1
[2020-08-20] MEDS: POTASSIUM CHLORIDE 20 MEQ TABLET.ER PO (08:36)
[2020-08-20] MEDS: TORSEMIDE 10 MG TABLET PO (08:37)
[2020-08-20] MEDS: ASPIRIN 81 MG ENTERIC TABLET PO (08:37)
[2020-08-20] MEDS: DOXAZOSIN MESYLATE 2 MG TABLET PO (08:37)
[2020-08-20] MEDS: polyethylene glycoL 3350 17 GM POWD.PACK PO (08:37)
[2020-08-20] MEDS: NEBIVOLOL HCL 5 MG TABLET 20 MG PO ×2 (08:37→17:41)
[2020-08-20] MEDS: NIFEdipine 30 MG TAB.ER.24 60 MG PO (08:37)
[2020-08-20] MEDS: SILVERGEL (ELTA) 45 ML 1 APPLIC TOPICAL (08:37)
--- NOTE | 2020-08-20 16:18 | WPDNEURORHBP ---
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 Patient required diuresis with Bumex. On 08/05 patient experienced left-sided weakness. MRI revealed numerous foci of cortical and subcortical as well as subacute strokes along the posterior frontal, lateral and posterior lateral parietal, posterior inferior and right occipital lobe. Patient is currently being anticoagulated on aspirin and Coumadin. Coumadin dosing is ongoing. Patient shows ongoing progress. Endurance is improving. Patient voices no complaints.Patient is more vocal. Patient is eating 100 percent . Patient is seen during OT Review of Systems Review of Systems: All systems reviewed & are unremarkable except as noted in HPI and below ENT: Reports Normal hearing present Neurologic: Reports Normal hearing present Functional Status Ambulation Ability Ability to Ambulate 10 Feet: Minimum Assistance X 1 Ability to Ambulate 50 Feet With 2 Turns: Minimum Assistance X 1 Ability to Ambulate 150 Feet: Minimum Assistance X 1 Ambulation Assistive Devices: Walker, Wheeled Transfers Ability Ability to Transfer In/Out of Chair: Maximum Assistance X 1 Exam Narrative: Exam Narrative: Speech is dysarthric . left visual field loss is noted. Patient is compensating for left visual loss by scanning. heart rate and rhythm is regular. Lungs are clear to auscultation. Abdomen is obese. 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 Right upper extremity strength is 4- out of 5. Left upper extremity strength is improving to 3/5. Bilateral lower extremity strength is 3+/5 to 4-.No pedal edema present today Endurance is improving. Speech volume and clarity is improving Gait min assist FWW. Patient requires moderate to maximum assistance with dressing and bathing activities. Patient is on a soft bite sized diet. Patient has overall improvement with verbal communication. Skin: General skin exam: no rashes or lesions noted Objective Data Vital Signs Vital Signs: Vital Signs - 24 hr 08/19/20 17:16 08/19/20 22:00 08/20/20 06:00 Temperature 37.1 C 36.1 C L Pulse Rate 76 89 69 Respiratory Rate 16 16 Blood Pressure 135/51 L 149/64 H Pulse Oximetry 100 100 04/06/21 08:00 08/20/20 08:37 08/20/20 14:00 Temperature 36.8 C Pulse Rate 69 69 77 Respiratory Rate 16 16 Blood Pressure 145/61 H Pulse Oximetry 100 98 Intake/Output Intake/Output: Intake & Output 08/17/20 08/18/20 08/19/20 08/20/20 23:59 23:59 23:59 23:59 Intake Total 720 720 720 600 Balance 720 720 720 600 Meds/Results Medications: Active Medications Generic Name Dose Route Start Last Admin Trade Name Freq PRN Reason Stop Dose Admin Acetaminophen 1,000 mg 08/09/20 16:38 08/19/20 21:26 Acetaminophen 500 Mg Tablet PO 1,000 mg Q6H PRN Administration Pain, Moderate Hydrocodone Bitart/Acetaminophen 1 tab 08/09/20 16:38 Hydrocodone/Acetaminophen (*Crx) 5-325 Mg Tablet PO Q4H PRN Pain (Scale Score 7-10) Aspirin 81 mg 08/10/20 09:00 08/20/20 08:37 Aspirin 81 Mg Enteric Tablet PO 81 mg DAILY ARINA Administration Atorvastatin Calcium 80 mg 08/15/20 17:00 08/19/20 17:15 Atorvastatin 40 Mg Tablet PO 80 mg DAILY@1700 ARINA Administration Bisacodyl 10 mg 08/13/20 21:00 08/19/20 22:53 Bisacodyl 10 Mg Suppository RECTAL Not Given HS ARINA Doxazosin Mesylate 2 mg 08/10/20 09:00 08/20/20 08:37 Doxazosin Mesylate 2 Mg Tablet PO 2 mg DAILY ARINA Administration Melatonin 3 mg 08/10/20 21:00 08/19/20 23:39 Melatonin 3 Mg Tablet PO 3 mg HS ARINA Adminis
[2020-08-20] MEDS: ATORVASTATIN 40 MG TABLET 80 MG PO (17:41)
[2020-08-20] MEDS: WARFARIN (*PBKC) 5 MG TABLET PO (17:41)
[2020-08-20] MEDS: MELATONIN 3 MG TABLET PO (21:34)
[2020-08-20] MEDS: BISACODYL 10 MG SUPPOSITORY RECTAL (21:34)
[2020-08-21 05:13] LABS: INR 2.2; Prothrombin Time 24.6 Seconds (11.1-14.7)
[2020-08-21 05:37] VITALS: BP 156/47; PULSE 76; RESP 18; TEMP 36.6; O2SAT 100
[2020-08-21 09:33] VITALS: PULSE 80
[2020-08-21] MEDS: NIFEdipine 30 MG TAB.ER.24 60 MG PO (09:33)
[2020-08-21] MEDS: polyethylene glycoL 3350 17 GM POWD.PACK PO (09:33)
[2020-08-21] MEDS: NEBIVOLOL HCL 5 MG TABLET 20 MG PO ×2 (09:33→17:10)
[2020-08-21] MEDS: POTASSIUM CHLORIDE 20 MEQ TABLET.ER PO (09:33)
[2020-08-21] MEDS: TORSEMIDE 10 MG TABLET PO (09:34)
[2020-08-21] MEDS: ACETAMINOPHEN 500 MG TABLET 1000 MG PO ×2 (09:34→17:45)
[2020-08-21] MEDS: DOXAZOSIN MESYLATE 2 MG TABLET PO (09:34)
[2020-08-21] MEDS: SILVERGEL (ELTA) 45 ML 1 APPLIC TOPICAL (09:34)
[2020-08-21] MEDS: ASPIRIN 81 MG ENTERIC TABLET PO (09:34)
--- NOTE | 2020-08-21 11:24 | PCDIET ---
Nutrition Follow-Up Complete: Nutrition Diagnosis: Increased protein intake related to wound as evidenced by unstageable coccyx pressure ulcer. Nutrition Goal: Patient to consume 75% or more of meals on current diet order. Goal met. Patient consuming 75-100% of most meals on soft and bite size diet. Ensure Enlive discontinued due to patient refusal which is acceptable due to improved intakes. Discussed heart healthy diet with patient this date and encouraged protein rich food at every meal. Last recorded weight is 73.6 kg. Recommend obtaining new weight. Bowel Motility: Last documented BM on 08/18/20. Patient receiving scheduled Miralax and Dulcolax and has order for Senna prn. Labs Reviewed: BUN (22), Cr (1.9) Meds Noted: Lipitor, Dulcolax, Cardura, Nifedipine, Senna prn, Miralax, KCl, Demadex, Coumadin Additional Notes: Unstageable area to coccyx documented. Will continue to monitor with same goal. Nutrition Monitoring and Evaluation: Follow up every 7 days.
[2020-08-21 14:00] VITALS: BP 146/58; PULSE 86; RESP 18; TEMP 35.9; O2SAT 96
--- NOTE | 2020-08-21 14:25 | WPDNEURORHBP ---
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 Patient required diuresis with Bumex. On 08/05 patient experienced left-sided weakness. MRI revealed numerous foci of cortical and subcortical as well as subacute strokes along the posterior frontal, lateral and posterior lateral parietal, posterior inferior and right occipital lobe. Patient is currently being anticoagulated on aspirin and Coumadin. Coumadin dosing is ongoing. Patient shows ongoing progress. Endurance is improving. Patient voices no complaints.Patient is more vocal. Patient is eating 100 percent . Patient is feeding herself Review of Systems Review of Systems: All systems reviewed & are unremarkable except as noted in HPI and below Functional Status Ambulation Ability Ability to Ambulate 10 Feet: Minimum Assistance X 1 Ability to Ambulate 50 Feet With 2 Turns: Minimum Assistance X 1 Ability to Ambulate 150 Feet: Minimum Assistance X 1 Ambulation Assistive Devices: Walker, Wheeled Transfers Ability Ability to Transfer In/Out of Chair: Maximum Assistance X 1 Exam Narrative: Exam Narrative: Speech is dysarthric . left visual field loss is noted. Patient is compensating for left visual loss by scanning. heart rate and rhythm is regular. Lungs are clear to auscultation. Abdomen is obese. 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 Right upper extremity strength is 4- out of 5. Left upper extremity strength is improving to 3/5. Bilateral lower extremity strength is 3+/5 to 4-.No pedal edema present today Endurance is improving. Speech volume and clarity is improving Gait min assist FWW. Patient requires moderate to maximum assistance with dressing and bathing activities. Patient is on a soft bite sized diet. Patient has overall improvement with verbal communication. Endurance is improving. Delay in speech has decreased. Patient is more animated. Objective Data Vital Signs Vital Signs: Vital Signs - 24 hr 08/20/20 17:41 08/20/20 20:45 08/20/20 21:32 Temperature 36.8 C Pulse Rate 77 86 86 Respiratory Rate 18 18 Blood Pressure 153/65 H Pulse Oximetry 100 100 08/21/20 05:37 08/21/20 09:33 08/21/20 14:00 Temperature 36.6 C 35.9 C L Pulse Rate 76 80 86 Respiratory Rate 18 18 Blood Pressure 156/47 H 146/58 H Pulse Oximetry 100 96 Intake/Output Intake/Output: Intake & Output 08/18/20 08/19/20 08/20/20 08/21/20 23:59 23:59 23:59 23:59 Intake Total 720 720 600 600 Balance 720 720 600 600 Meds/Results Medications: Active Medications Generic Name Dose Route Start Last Admin Trade Name Freq PRN Reason Stop Dose Admin Acetaminophen 1,000 mg 08/09/20 16:38 08/21/20 09:34 Acetaminophen 500 Mg Tablet PO 1,000 mg Q6H PRN Administration Pain, Moderate Hydrocodone Bitart/Acetaminophen 1 tab 08/09/20 16:38 Hydrocodone/Acetaminophen (*Crx) 5-325 Mg Tablet PO Q4H PRN Pain (Scale Score 7-10) Aspirin 81 mg 08/10/20 09:00 08/21/20 09:34 Aspirin 81 Mg Enteric Tablet PO 81 mg DAILY ARINA Administration Atorvastatin Calcium 80 mg 08/15/20 17:00 08/20/20 17:41 Atorvastatin 40 Mg Tablet PO 80 mg DAILY@1700 ARINA Administration Bisacodyl 10 mg 08/13/20 21:00 08/20/20 21:34 Bisacodyl 10 Mg Suppository RECTAL 10 mg HS ARINA Administration Doxazosin Mesylate 2 mg 08/10/20 09:00 08/21/20 09:34 Doxazosin Mesylate 2 Mg Tablet PO 2 mg DAILY ARINA Administration Melatonin 3 mg 08/10/20 21:00 08/20/20 21:34 Melatonin 3 Mg Tablet PO 3 mg HS ARINA Administration Nebivolol 20 mg 08/11/20 17:00
[2020-08-21 17:10] VITALS: PULSE 86
[2020-08-21] MEDS: WARFARIN (*PBKC) 5 MG TABLET PO (17:10)
[2020-08-21] MEDS: ATORVASTATIN 40 MG TABLET 80 MG PO (17:10)
[2020-08-21 20:00] VITALS: PULSE 84; RESP 16; O2SAT 99
[2020-08-21 21:41] VITALS: BP 146/56; PULSE 84; RESP 16; TEMP 36.9; O2SAT 99
[2020-08-21] MEDS: MELATONIN 3 MG TABLET PO (21:49)
[2020-08-21] MEDS: BISACODYL 10 MG SUPPOSITORY RECTAL (21:50)
[2020-08-22 05:14] VITALS: BP 154/62; PULSE 79; RESP 18; TEMP 37; O2SAT 100
[2020-08-22 08:27] VITALS: PULSE 79
[2020-08-22] MEDS: polyethylene glycoL 3350 17 GM POWD.PACK PO (08:27)
[2020-08-22] MEDS: ASPIRIN 81 MG ENTERIC TABLET PO (08:27)
[2020-08-22] MEDS: POTASSIUM CHLORIDE 20 MEQ TABLET.ER PO (08:27)
[2020-08-22] MEDS: DOXAZOSIN MESYLATE 2 MG TABLET PO (08:27)
[2020-08-22] MEDS: NEBIVOLOL HCL 5 MG TABLET 20 MG PO ×2 (08:27→18:14)
[2020-08-22] MEDS: NIFEdipine 30 MG TAB.ER.24 60 MG PO (08:27)
[2020-08-22] MEDS: TORSEMIDE 10 MG TABLET PO ×2 (08:27→14:38)
[2020-08-22] MEDS: ACETAMINOPHEN 500 MG TABLET 1000 MG PO ×2 (08:29→18:14)
[2020-08-22] MEDS: SILVERGEL (ELTA) 45 ML 1 APPLIC TOPICAL (09:00)
--- NOTE | 2020-08-22 13:18 | WPDNEURORHBP ---
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 Patient required diuresis with Bumex. On 08/05 patient experienced left-sided weakness. MRI revealed numerous foci of cortical and subcortical as well as subacute strokes along the posterior frontal, lateral and posterior lateral parietal, posterior inferior and right occipital lobe. Patient is currently being anticoagulated on aspirin and Coumadin. Coumadin dosing is ongoing. Patient continues to show progress in all therapies. Daughter was present for family training today and was concerned regarding pedal edema. Patient had been on Bumex 1 mg and Demadox 20 mg but dose was adjusted at the other hospital due to renal concerns. Patient refuses JUDE hose/Carlos Alberto wraps or repositioning of feet. Review of Systems Review of Systems: All systems reviewed & are unremarkable except as noted in HPI and below Functional Status Ambulation Ability Ability to Ambulate 10 Feet: Minimum Assistance X 1 Ability to Ambulate 50 Feet With 2 Turns: Minimum Assistance X 1 Ability to Ambulate 150 Feet: Minimum Assistance X 1 Ambulation Assistive Devices: Walker, Wheeled Transfers Ability Ability to Transfer In/Out of Chair: Maximum Assistance X 1 Exam Narrative: Exam Narrative: Speech is dysarthric . left visual field loss is improving. Patient is compensating for left visual loss by scanning. heart rate and rhythm is regular. Lungs are clear to auscultation. Abdomen is obese. 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 Right upper extremity strength is 4- out of 5. Left upper extremity strength is improving to 3/5. Bilateral lower extremity strength is 3+/5 to 4-. 3+ pedal edema present today Gait min assist FWW. Patient requires moderate to maximum assistance with dressing and bathing activities. Patient is on a soft bite sized diet. Patient has overall improvement with verbal communication. Endurance is improving. Delay in speech has decreased. Patient is more animated. Objective Data Vital Signs Vital Signs: Vital Signs - 24 hr 08/21/20 14:00 08/21/20 17:10 08/21/20 20:00 Temperature 35.9 C L Pulse Rate 86 86 84 Respiratory Rate 18 16 Blood Pressure 146/58 H Pulse Oximetry 96 99 08/21/20 21:41 08/22/20 05:14 08/22/20 08:27 Temperature 36.9 C 37.0 C Pulse Rate 84 79 79 Respiratory Rate 16 18 Blood Pressure 146/56 H 154/62 H Pulse Oximetry 99 100 Intake/Output Intake/Output: Intake & Output 08/19/20 08/20/20 08/21/20 08/22/20 23:59 23:59 23:59 23:59 Intake Total 720 600 840 240 Balance 720 600 840 240 Meds/Results Medications: Active Medications Generic Name Dose Route Start Last Admin Trade Name Freq PRN Reason Stop Dose Admin Acetaminophen 1,000 mg 08/09/20 16:38 08/22/20 08:29 Acetaminophen 500 Mg Tablet PO 1,000 mg Q6H PRN Administration Pain, Moderate Hydrocodone Bitart/Acetaminophen 1 tab 08/09/20 16:38 Hydrocodone/Acetaminophen (*Crx) 5-325 Mg Tablet PO Q4H PRN Pain (Scale Score 7-10) Aspirin 81 mg 08/10/20 09:00 08/22/20 08:27 Aspirin 81 Mg Enteric Tablet PO 81 mg DAILY ARINA Administration Atorvastatin Calcium 80 mg 08/15/20 17:00 08/21/20 17:10 Atorvastatin 40 Mg Tablet PO 80 mg DAILY@1700 ARINA Administration Bisacodyl 10 mg 08/13/20 21:00 08/21/20 21:50 Bisacodyl 10 Mg Suppository RECTAL 10 mg HS ARINA Administration Doxazosin Mesylate 2 mg 08/10/20 09:00 08/22/20 08:27 Doxazosin Mesylate 2 Mg Tablet PO 2 mg DAILY ARINA Administration Melatonin 3 mg 08/10/20 21:00 08/21/20 21:49 Melatoni
[2020-08-22 14:00] VITALS: BP 137/86; PULSE 73; RESP 20; TEMP 36.9; O2SAT 100
[2020-08-22 18:14] VITALS: PULSE 73
[2020-08-22] MEDS: WARFARIN (*PBKC) 5 MG TABLET PO (18:14)
[2020-08-22] MEDS: ATORVASTATIN 40 MG TABLET 80 MG PO (18:14)
[2020-08-22 20:25] VITALS: PULSE 82; RESP 16; O2SAT 96
[2020-08-22] MEDS: MELATONIN 3 MG TABLET PO (21:04)
[2020-08-22] MEDS: BISACODYL 10 MG SUPPOSITORY RECTAL (21:04)
[2020-08-22 22:00] VITALS: BP 142/57; PULSE 82; RESP 16; TEMP 36.7; O2SAT 96
[2020-08-23] MEDS: ACETAMINOPHEN 500 MG TABLET 1000 MG PO ×3 (02:01→18:14)
[2020-08-23 05:10] VITALS: BP 155/64; PULSE 72; RESP 16; TEMP 36.2; O2SAT 100
[2020-08-23 08:12] LABS: Basophils Absolute Auto 0.1 K/mm3 (0.0-0.1); Basophils Percent Auto 0.9 % (0.2-1.2); Eosinophils Absolute Auto 0.1 K/mm3 (0-0.3); Eosinophils Percent Auto 2.5 % (0-4.4); Hematocrit 38.4 % (37.0-47.0); Hemoglobin 12.3 g/dL (12.0-15.0); Immature Granulocyte Absolute 0.01 K/mm3 (0.00-0.031); Immature Granulocyte Percent A 0.2 % (0-0.5); Lymphocytes Absolute Auto 1.14 K/mm3 (0.9-3.2); Lymphocytes Percent Auto 20.4 % (18.3-44.2); Mean Corpuscular Hemoglobin 26.8 pg (26-34); Mean Corpuscular Volume 83.7 fl (80-100); Mean Platelet Volume 10.7 fl (7.4-10.4); Monocytes Absolute Auto 0.4 K/mm3 (0.1-0.6); Monocytes Percent Auto 7.5 % (2.6-8.5); Neutrophils Absolute Auto 3.8 K/mm3 (1.3-6.7); Neutrophils Percent Auto 68.5 % (45.5-73.1); Platelet Count Result 362 k/mm3 (150-375); Red Blood Count 4.59 M/mm3 (4.2-5.4); Red Cell Distribution Width 14.7 % (11.5-14.5); White Blood Count 5.6 K/mm3 (4.5-10.0)
[2020-08-23 08:23] LABS: INR 2.1
[2020-08-23 08:26] LABS: Alanine Aminotransferase 19 U/L (4-35); Albumin Level 3.4 g/dL (3.5-5.1); Alkaline Phosphatase 84 U/L (38-126); Anion Gap 2 mmol/L (8-16); Aspartate Amino Transferase 29 U/L (14-36); Bilirubin,Total 0.2 mg/dL (0.2-1.3); Blood Urea Nitrogen 25 mg/dL (7-17); Calcium 9.3 mg/dL (8.4-10.2); Carbon Dioxide 31 mmol/L (22-30); Chloride 104 mmol/L (98-107); Estimated CRCL calculation 23 ml/min; Estimated Glomerular Filt Rate 34; Glucose 103 mg/dL (65-105); Potassium 4.1 mmol/L (3.4-5.0); Sodium 137 mmol/L (137-145)
[2020-08-23 08:33] LABS: NT Pro B Type Natriuretic Pept 2820 PG/ML (5-100)
[2020-08-23 09:04] VITALS: PULSE 72
[2020-08-23] MEDS: SILVERGEL (ELTA) 45 ML 1 APPLIC TOPICAL (09:04)
[2020-08-23] MEDS: ASPIRIN 81 MG ENTERIC TABLET PO (09:04)
[2020-08-23] MEDS: NEBIVOLOL HCL 5 MG TABLET 20 MG PO ×2 (09:04→18:14)
[2020-08-23] MEDS: NIFEdipine 30 MG TAB.ER.24 60 MG PO (09:04)
[2020-08-23] MEDS: DOXAZOSIN MESYLATE 2 MG TABLET PO (09:04)
[2020-08-23] MEDS: POTASSIUM CHLORIDE 20 MEQ TABLET.ER PO (09:04)
[2020-08-23] MEDS: TORSEMIDE 10 MG TABLET PO (09:04)
[2020-08-23] MEDS: polyethylene glycoL 3350 17 GM POWD.PACK PO (09:05)
--- NOTE | 2020-08-23 13:43 | WPDNEURORHBP ---
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 Patient required diuresis with Bumex. On 08/05 patient experienced left-sided weakness. MRI revealed numerous foci of cortical and subcortical as well as subacute strokes along the posterior frontal, lateral and posterior lateral parietal, posterior inferior and right occipital lobe. Patient is currently being anticoagulated on aspirin and Coumadin. Coumadin dosing is ongoing. Patient continues to show progress in all therapies. Daughter was present for family training today and was concerned regarding pedal edema. Patient had been on Bumex 1 mg and Demadox 20 mg but dose was adjusted at the other hospital due to renal concerns. Patient refuses JUDE hose/Carlos Alberto wraps or repositioning of feet. Functional Status Ambulation Ability Ability to Ambulate 10 Feet: Minimum Assistance X 1 Ability to Ambulate 50 Feet With 2 Turns: Minimum Assistance X 1 Ability to Ambulate 150 Feet: Minimum Assistance X 1 Ambulation Assistive Devices: Walker, Wheeled Transfers Ability Ability to Transfer In/Out of Chair: Maximum Assistance X 1 Exam Narrative: Exam Narrative: Speech is dysarthric . left visual field loss is improving. Patient is compensating for left visual loss by scanning. heart rate and rhythm is regular. Lungs are clear to auscultation. Abdomen is obese. 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 Right upper extremity strength is 4- out of 5. Left upper extremity strength is improving to 3/5. Bilateral lower extremity strength is 3+/5 to 4-. 3+ pedal edema present today. Edema is moving up the legs. Objective Data Vital Signs Vital Signs: Vital Signs - 24 hr 08/22/20 14:00 08/22/20 18:14 08/22/20 20:25 Temperature 36.9 C Pulse Rate 73 73 82 Respiratory Rate 20 16 Blood Pressure 137/86 Pulse Oximetry 100 96 08/22/20 22:00 08/23/20 05:10 08/23/20 09:04 Temperature 36.7 C 36.2 C L Pulse Rate 82 72 72 Respiratory Rate 16 16 Blood Pressure 142/57 H 155/64 H Pulse Oximetry 96 100 Intake/Output Intake/Output: Intake & Output 08/20/20 08/21/20 08/22/20 08/23/20 23:59 23:59 23:59 23:59 Intake Total 600 840 720 240 Balance 600 840 720 240 Meds/Results Medications: Active Medications Generic Name Dose Route Start Last Admin Trade Name Fabio PRN Reason Stop Dose Admin Acetaminophen 1,000 mg 08/09/20 16:38 08/23/20 11:24 Acetaminophen 500 Mg Tablet PO 1,000 mg Q6H PRN Administration Pain, Moderate Hydrocodone Bitart/Acetaminophen 1 tab 08/09/20 16:38 Hydrocodone/Acetaminophen (*Crx) 5-325 Mg Tablet PO Q4H PRN Pain (Scale Score 7-10) Aspirin 81 mg 08/10/20 09:00 08/23/20 09:04 Aspirin 81 Mg Enteric Tablet PO 81 mg DAILY ARINA Administration Atorvastatin Calcium 80 mg 08/15/20 17:00 08/22/20 18:14 Atorvastatin 40 Mg Tablet PO 80 mg DAILY@1700 ARINA Administration Bisacodyl 10 mg 08/13/20 21:00 08/22/20 21:04 Bisacodyl 10 Mg Suppository RECTAL 10 mg HS ARINA Administration Doxazosin Mesylate 2 mg 08/10/20 09:00 08/23/20 09:04 Doxazosin Mesylate 2 Mg Tablet PO 2 mg DAILY ARINA Administration Melatonin 3 mg 08/10/20 21:00 08/22/20 21:04 Melatonin 3 Mg Tablet PO 3 mg HS ARINA Administration Nebivolol 20 mg 08/11/20 17:00 08/23/20 09:04 Nebivolol Hcl 5 Mg Tablet PO 20 mg 0800,1700 ARINA Administration Nifedipine 60 mg 08/10/20 09:00 08/23/20 09:04 Nifedipine 30 Mg Tab.Er.24 PO 60 mg DAILY ARINA Administration Polyethylene Glycol 17 gm 08/12/20 09:00 08/23/20 09:05 Polyethylene
[2020-08-23 14:00] VITALS: BP 156/60; PULSE 75; RESP 20; TEMP 36.8; O2SAT 100
[2020-08-23 18:14] VITALS: PULSE 75
[2020-08-23] MEDS: WARFARIN (*PBKC) 5 MG TABLET PO (18:14)
[2020-08-23] MEDS: ATORVASTATIN 40 MG TABLET 80 MG PO (18:14)
[2020-08-23 20:17] VITALS: BP 131/55; PULSE 77; RESP 20; TEMP 36.9; O2SAT 99
[2020-08-24 04:59] VITALS: BP 164/67; PULSE 73; RESP 18; TEMP 36.6; O2SAT 100
[2020-08-24 05:12] LABS: Basophils Percent Auto 0.8 % (0.2-1.2); Eosinophils Absolute Auto 0.2 K/mm3 (0-0.3); Eosinophils Percent Auto 3.7 % (0-4.4); Hemoglobin 10.1 g/dL (12.0-15.0); Immature Granulocyte Absolute 0.01 K/mm3 (0.00-0.031); Immature Granulocyte Percent A 0.2 % (0-0.5); Lymphocytes Absolute Auto 1.18 K/mm3 (0.9-3.2); Lymphocytes Percent Auto 24.4 % (18.3-44.2); Mean Corpuscular HGB Conc 32.6 g/dl (32-36); Mean Corpuscular Hemoglobin 27.1 pg (26-34); Mean Corpuscular Volume 83.1 fl (80-100); Mean Platelet Volume 10.4 fl (7.4-10.4); Monocytes Absolute Auto 0.5 K/mm3 (0.1-0.6); Monocytes Percent Auto 9.7 % (2.6-8.5); Neutrophils Percent Auto 61.2 % (45.5-73.1); Platelet Count Result 303 k/mm3 (150-375); Red Blood Count 3.73 M/mm3 (4.2-5.4); Red Cell Distribution Width 14.5 % (11.5-14.5); White Blood Count 4.8 K/mm3 (4.5-10.0)
[2020-08-24 08:48] VITALS: PULSE 73
[2020-08-24] MEDS: NEBIVOLOL HCL 5 MG TABLET 20 MG PO ×2 (08:48→17:32)
[2020-08-24] MEDS: ASPIRIN 81 MG ENTERIC TABLET PO (08:48)
[2020-08-24] MEDS: NIFEdipine 30 MG TAB.ER.24 60 MG PO (08:49)
[2020-08-24] MEDS: polyethylene glycoL 3350 17 GM POWD.PACK PO (08:49)
[2020-08-24] MEDS: DOXAZOSIN MESYLATE 2 MG TABLET PO (08:49)
[2020-08-24] MEDS: POTASSIUM CHLORIDE 20 MEQ TABLET.ER PO (08:49)
[2020-08-24] MEDS: SILVERGEL (ELTA) 45 ML 1 APPLIC TOPICAL (08:50)
[2020-08-24] MEDS: TORSEMIDE 10 MG TABLET PO (08:50)
--- NOTE | 2020-08-24 09:29 | WPDNEURORHBP ---
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 with shortness of breath and found to have right-sided pleural effusion and significant elevated blood pressure being 230/134. Patient required diuresis with Bumex. On 08/05 patient experienced left-sided weakness. MRI revealed numerous foci of cortical and subcortical as well as subacute strokes along the posterior frontal, lateral and posterior lateral parietal, posterior inferior and right occipital lobe. Patient is currently being anticoagulated on aspirin and Coumadin. Coumadin dosing is ongoing. Patient continues to show progress in all therapies. Daughter was present for family training today and was concerned regarding pedal edema. Patient had been on Bumex 1 mg and Demadox 20 mg but dose was adjusted at the other hospital due to renal concerns. Patient refuses VINNY hose/Carlos Alberto wraps or repositioning of feet. patient voices no complaints. Patient continues to refuse Vinny hose or Carlos Laberto wraps for lower extremity edema Review of Systems Review of Systems: All systems reviewed & are unremarkable except as noted in HPI and below ENT: Reports Normal hearing present Neurologic: Reports Normal hearing present Functional Status Ambulation Ability Ability to Ambulate 10 Feet: Minimum Assistance X 1 Ability to Ambulate 50 Feet With 2 Turns: Minimum Assistance X 1 Ability to Ambulate 150 Feet: Minimum Assistance X 1 Ambulation Assistive Devices: Walker, Wheeled Transfers Ability Ability to Transfer In/Out of Chair: Maximum Assistance X 1 Exam Narrative: Exam Narrative: Speech is dysarthric . left visual field loss is improving. Patient is compensating for left visual loss by scanning. heart rate and rhythm is regular. Lungs are clear to auscultation. Abdomen is obese. 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 Right upper extremity strength is 4- out of 5. Left upper extremity strength is improving to 3+/5. Bilateral lower extremity strength is 3+/5 to 4-. 2+ pedal edema present today. Edema is moving up the legs. Objective Data Vital Signs Vital Signs: Vital Signs - 24 hr 08/23/20 14:00 08/23/20 18:14 08/23/20 20:17 Temperature 36.8 C 36.9 C Pulse Rate 75 75 77 Respiratory Rate 20 20 Blood Pressure 156/60 H 131/55 L Pulse Oximetry 100 99 08/24/20 04:59 08/24/20 08:48 Temperature 36.6 C Pulse Rate 73 73 Respiratory Rate 18 Blood Pressure 164/67 H Pulse Oximetry 100 Intake/Output Intake/Output: Intake & Output 08/21/20 08/22/20 08/23/20 08/24/20 23:59 23:59 23:59 23:59 Intake Total 840 720 960 Balance 840 720 960 Meds/Results Medications: Active Medications Generic Name Dose Route Start Last Admin Trade Name Freq PRN Reason Stop Dose Admin Acetaminophen 1,000 mg 08/09/20 16:38 08/23/20 18:14 Acetaminophen 500 Mg Tablet PO 1,000 mg Q6H PRN Administration Pain, Moderate Hydrocodone Bitart/Acetaminophen 1 tab 08/09/20 16:38 Hydrocodone/Acetaminophen (*Crx) 5-325 Mg Tablet PO Q4H PRN Pain (Scale Score 7-10) Aspirin 81 mg 08/10/20 09:00 08/24/20 08:48 Aspirin 81 Mg Enteric Tablet PO 81 mg DAILY ARINA Administration Atorvastatin Calcium 80 mg 08/15/20 17:00 08/23/20 18:14 Atorvastatin 40 Mg Tablet PO 80 mg DAILY@1700 ARINA Administration Bisacodyl 10 mg 08/13/20 21:00 08/23/20 20:22 Bisacodyl 10 Mg Suppository RECTAL Not Given HS ARINA Doxazosin Mesylate 2 mg 08/10/20 09:00 08/24/20 08:49 Doxazosin Mesylate 2 Mg Tablet PO 2 mg DAILY ARINA Administration Melatonin 3 mg 08/10/20 21:00 08/23/20 20:22 Melatonin 3 Mg Tablet PO Not Given HS ARINA Nebivolol 20 mg 08/11/20 17:00 08/24/20 08:48 Nebivolol
[2020-08-24] MEDS: ACETAMINOPHEN 500 MG TABLET 1000 MG PO ×2 (09:47→21:22)
[2020-08-24 14:00] VITALS: BP 152/58; PULSE 79; RESP 18; TEMP 36.2; O2SAT 96
[2020-08-24] MEDS: WARFARIN (*PBKC) 5 MG TABLET PO (17:31)
[2020-08-24 17:32] VITALS: PULSE 79
[2020-08-24] MEDS: ATORVASTATIN 40 MG TABLET 80 MG PO (17:33)
[2020-08-24 20:17] VITALS: BP 145/66; PULSE 86; RESP 18; TEMP 36.8; O2SAT 100
[2020-08-25 05:31] VITALS: BP 159/57; PULSE 76; RESP 18; TEMP 36.2; O2SAT 100
[2020-08-25] MEDS: TORSEMIDE 10 MG TABLET PO (08:49)
[2020-08-25] MEDS: polyethylene glycoL 3350 17 GM POWD.PACK PO (08:49)
[2020-08-25 08:50] VITALS: PULSE 76
[2020-08-25] MEDS: SILVERGEL (ELTA) 45 ML 1 APPLIC TOPICAL (08:50)
[2020-08-25] MEDS: NIFEdipine 30 MG TAB.ER.24 60 MG PO (08:50)
[2020-08-25] MEDS: ASPIRIN 81 MG ENTERIC TABLET PO (08:50)
[2020-08-25] MEDS: POTASSIUM CHLORIDE 20 MEQ TABLET.ER PO (08:50)
[2020-08-25] MEDS: NEBIVOLOL HCL 5 MG TABLET 20 MG PO ×2 (08:50→16:58)
[2020-08-25] MEDS: DOXAZOSIN MESYLATE 2 MG TABLET PO (08:50)
[2020-08-25] MEDS: ACETAMINOPHEN 500 MG TABLET 1000 MG PO ×2 (09:53→16:59)
--- NOTE | 2020-08-25 10:34 | WPDNEURORHBP ---
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 Patient required diuresis with Bumex. On 08/05 patient experienced left-sided weakness. MRI revealed numerous foci of cortical and subcortical as well as subacute strokes along the posterior frontal, lateral and posterior lateral parietal, posterior inferior and right occipital lobe. Patient is currently being anticoagulated on aspirin and Coumadin. Coumadin dosing is ongoing. Patient continues to show progress in all therapies. Patient had been on Bumex 1 mg and Demadox 20 mg but dose was adjusted at the other hospital due to renal concerns. Patient refuses VINNY hose/Carlos Alberto wraps or repositioning of feet. Patient has agreed to wear VINNY hose! Review of Systems Review of Systems: All systems reviewed & are unremarkable except as noted in HPI and below Functional Status Ambulation Ability Ability to Ambulate 10 Feet: Minimum Assistance X 1 Ability to Ambulate 50 Feet With 2 Turns: Minimum Assistance X 1 Ability to Ambulate 150 Feet: Minimum Assistance X 1 Ambulation Assistive Devices: Walker, Wheeled Transfers Ability Ability to Transfer In/Out of Chair: Maximum Assistance X 1 Exam Narrative: Exam Narrative: Speech is dysarthric . left visual field loss is improving. Patient is compensating for left visual loss by scanning. heart rate and rhythm is regular. Lungs are clear to auscultation. Abdomen is obese. 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 Right upper extremity strength is 4- out of 5. Left upper extremity strength is improving to 3+/5. Bilateral lower extremity strength is 3+/5 to 4-. . BLE edema is trace . Pedal edema 2-3+ Vinny hose are noted Objective Data Vital Signs Vital Signs: Vital Signs - 24 hr 08/24/20 14:00 08/24/20 17:32 08/24/20 20:17 Temperature 36.2 C L 36.8 C Pulse Rate 79 79 86 Respiratory Rate 18 18 Blood Pressure 152/58 H 145/66 H Pulse Oximetry 96 100 08/25/20 05:31 08/25/20 08:50 Temperature 36.2 C L Pulse Rate 76 76 Respiratory Rate 18 Blood Pressure 159/57 H Pulse Oximetry 100 Intake/Output Intake/Output: Intake & Output 08/22/20 08/23/20 08/24/20 08/25/20 23:59 23:59 23:59 23:59 Intake Total 720 960 960 360 Balance 720 960 960 360 Meds/Results Medications: Active Medications Generic Name Dose Route Start Last Admin Trade Name Freq PRN Reason Stop Dose Admin Acetaminophen 1,000 mg 08/09/20 16:38 08/25/20 09:53 Acetaminophen 500 Mg Tablet PO 1,000 mg Q6H PRN Administration Pain, Moderate Hydrocodone Bitart/Acetaminophen 1 tab 08/09/20 16:38 Hydrocodone/Acetaminophen (*Crx) 5-325 Mg Tablet PO Q4H PRN Pain (Scale Score 7-10) Aspirin 81 mg 08/10/20 09:00 08/25/20 08:50 Aspirin 81 Mg Enteric Tablet PO 81 mg DAILY ARINA Administration Atorvastatin Calcium 80 mg 08/15/20 17:00 08/24/20 17:33 Atorvastatin 40 Mg Tablet PO 80 mg DAILY@1700 ARINA Administration Bisacodyl 10 mg 08/13/20 21:00 08/24/20 20:26 Bisacodyl 10 Mg Suppository RECTAL Not Given HS ARINA Doxazosin Mesylate 2 mg 08/10/20 09:00 08/25/20 08:50 Doxazosin Mesylate 2 Mg Tablet PO 2 mg DAILY ARINA Administration Melatonin 3 mg 08/10/20 21:00 08/24/20 20:26 Melatonin 3 Mg Tablet PO Not Given HS ARINA Nebivolol 20 mg 08/11/20 17:00 08/25/20 08:50 Nebivolol Hcl 5 Mg Tablet PO 20 mg 0800,1700 ARINA Administration Nifedipine 60 mg 08/10/20 09:00 08/25/20 08:50 Nifedipine 30 Mg Tab.Er.24 PO 60 mg DAILY ARINA Administration Torsemide 5 Mg 1 each 08/24/20 09:00 08/25/20
[2020-08-25 14:00] VITALS: BP 144/53; PULSE 78; RESP 18; TEMP 36.7; O2SAT 100
[2020-08-25 16:58] VITALS: PULSE 78
[2020-08-25] MEDS: WARFARIN (*PBKC) 5 MG TABLET PO (16:58)
[2020-08-25] MEDS: ATORVASTATIN 40 MG TABLET 80 MG PO (16:58)
[2020-08-25 20:00] VITALS: PULSE 78; RESP 18; O2SAT 100
[2020-08-25 22:00] VITALS: BP 133/61; PULSE 78; RESP 16; TEMP 36.4; O2SAT 98
[2020-08-26] MEDS: BISACODYL 10 MG SUPPOSITORY RECTAL (05:34)
[2020-08-26 06:00] VITALS: BP 161/54; PULSE 74; RESP 16; TEMP 36.1; O2SAT 100
[2020-08-26 08:34] VITALS: PULSE 74
[2020-08-26 08:34] LABS: INR 2.1; Prothrombin Time 24.5 Seconds (11.1-14.7)
[2020-08-26] MEDS: NEBIVOLOL HCL 5 MG TABLET 20 MG PO ×2 (08:34→17:29)
[2020-08-26] MEDS: NIFEdipine 30 MG TAB.ER.24 60 MG PO (08:34)
[2020-08-26] MEDS: polyethylene glycoL 3350 17 GM POWD.PACK PO (08:34)
[2020-08-26] MEDS: DOXAZOSIN MESYLATE 2 MG TABLET PO (08:34)
[2020-08-26] MEDS: ASPIRIN 81 MG ENTERIC TABLET PO (08:34)
[2020-08-26] MEDS: POTASSIUM CHLORIDE 20 MEQ TABLET.ER PO (08:35)
[2020-08-26] MEDS: TORSEMIDE 10 MG TABLET PO (08:36)
[2020-08-26] MEDS: SILVERGEL (ELTA) 45 ML 1 APPLIC TOPICAL (08:36)
[2020-08-26 08:43] LABS: NT Pro B Type Natriuretic Pept 3760 PG/ML (5-100)
[2020-08-26 09:18] LABS: Anion Gap 3 mmol/L (8-16); Blood Urea Nitrogen 22 mg/dL (7-17); Calcium 9.7 mg/dL (8.4-10.2); Carbon Dioxide 32 mmol/L (22-30); Chloride 104 mmol/L (98-107); Estimated CRCL calculation 25 ml/min; Estimated Glomerular Filt Rate 36; Glucose 85 mg/dL (65-105); Sodium 139 mmol/L (137-145)
--- NOTE | 2020-08-26 10:33 | WPDNEURORHBP ---
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 Patient required diuresis with Bumex. On 08/05 patient experienced left-sided weakness. MRI revealed numerous foci of cortical and subcortical as well as subacute strokes along the posterior frontal, lateral and posterior lateral parietal, posterior inferior and right occipital lobe. Patient is currently being anticoagulated on aspirin and Coumadin. Coumadin dosing is ongoing. Patient continues to show progress in all therapies. Patient had been on Bumex 1 mg and Demadox 20 mg but dose was adjusted at the other hospital due to renal concerns. Patient refuses JUDE hose/Carlos Alberto wraps or repositioning of feet. Patient has now refused to wear JUDE hose. Patient believes diuretic and JUDE hose causes edema. Examiner explained meds and compression hose purposes. Review of Systems Review of Systems: All systems reviewed & are unremarkable except as noted in HPI and below Functional Status Ambulation Ability Ability to Ambulate 10 Feet: Minimum Assistance X 1 Ability to Ambulate 50 Feet With 2 Turns: Minimum Assistance X 1 Ability to Ambulate 150 Feet: Minimum Assistance X 1 Ambulation Assistive Devices: Walker, Wheeled Transfers Ability Ability to Transfer In/Out of Chair: Maximum Assistance X 1 Exam Narrative: Exam Narrative: Speech is dysarthric . left visual field loss is improving. Patient is compensating for left visual loss by scanning. heart rate and rhythm is regular. Lungs are clear to auscultation. Abdomen is obese. 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 Right upper extremity strength is 4- out of 5. Left upper extremity strength is improving to 3+/5. Bilateral lower extremity strength is 3+/5 to 4-. . BLE edema is trace . Pedal edema 2-3+ . Edema is worse today because patient refuses JUDE hose. Psych: Speech and movement: Normal speech and movement present Affect: Animated affect present Attitude: cooperative Thought process: Impoverished thought process present Insight: Fair insight present (Psych) Judgement: Fair judgement present (Psych) Objective Data Vital Signs Vital Signs: Vital Signs - 24 hr 08/25/20 14:00 08/25/20 16:58 08/25/20 20:00 Temperature 36.7 C Pulse Rate 78 78 78 Respiratory Rate 18 18 Blood Pressure 144/53 H Pulse Oximetry 100 100 08/25/20 22:00 08/26/20 06:00 08/26/20 08:34 Temperature 36.4 C L 36.1 C L Pulse Rate 78 74 74 Respiratory Rate 16 16 Blood Pressure 133/61 161/54 H Pulse Oximetry 98 100 Intake/Output Intake/Output: Intake & Output 08/23/20 08/24/20 08/25/20 08/26/20 23:59 23:59 23:59 23:59 Intake Total 960 960 720 Balance 960 960 720 Meds/Results Medications: Active Medications Generic Name Dose Route Start Last Admin Trade Name Freq PRN Reason Stop Dose Admin Acetaminophen 1,000 mg 08/09/20 16:38 08/25/20 16:59 Acetaminophen 500 Mg Tablet PO 1,000 mg Q6H PRN Administration Pain, Moderate Hydrocodone Bitart/Acetaminophen 1 tab 08/09/20 16:38 Hydrocodone/Acetaminophen (*Crx) 5-325 Mg Tablet PO Q4H PRN Pain (Scale Score 7-10) Aspirin 81 mg 08/10/20 09:00 08/26/20 08:34 Aspirin 81 Mg Enteric Tablet PO 81 mg DAILY ARINA Administration Atorvastatin Calcium 80 mg 08/15/20 17:00 08/25/20 16:58 Atorvastatin 40 Mg Tablet PO 80 mg DAILY@1700 ARINA Administration Bisacodyl 10 mg 08/13/20 21:00 08/26/20 05:34 Bisacodyl 10 Mg Suppository RECTAL 10 mg HS ARINA Administration Doxazosin Mesylate 2 mg 08/10/20 09:00 08/26/20 08:34 Doxazosin Mesylate 2 Mg Tabl
[2020-08-26 14:00] VITALS: BP 145/54; PULSE 76; RESP 16; TEMP 36.7; O2SAT 100
[2020-08-26 17:29] VITALS: PULSE 76
[2020-08-26] MEDS: WARFARIN (*PBKC) 5 MG TABLET PO (17:29)
[2020-08-26] MEDS: ATORVASTATIN 40 MG TABLET 80 MG PO (17:29)
[2020-08-26] MEDS: ACETAMINOPHEN 500 MG TABLET 1000 MG PO (19:29)
[2020-08-26 21:50] VITALS: BP 131/49; PULSE 79; RESP 16; TEMP 36.4; O2SAT 99
[2020-08-27 06:00] VITALS: BP 155/53; PULSE 80; RESP 16; TEMP 36.1; O2SAT 100
[2020-08-27 08:18] VITALS: PULSE 80
[2020-08-27] MEDS: NEBIVOLOL HCL 5 MG TABLET 20 MG PO ×2 (08:18→18:06)
[2020-08-27] MEDS: ASPIRIN 81 MG ENTERIC TABLET PO (08:19)
[2020-08-27] MEDS: DOXAZOSIN MESYLATE 2 MG TABLET PO (08:19)
[2020-08-27] MEDS: NIFEdipine 30 MG TAB.ER.24 60 MG PO (08:19)
[2020-08-27] MEDS: polyethylene glycoL 3350 17 GM POWD.PACK PO (08:20)
[2020-08-27] MEDS: TORSEMIDE 10 MG TABLET PO (08:20)
[2020-08-27] MEDS: SILVERGEL (ELTA) 45 ML 1 APPLIC TOPICAL (08:21)
[2020-08-27] MEDS: POTASSIUM CHLORIDE 20 MEQ PACKET (FOR LIQUID) PO (08:44)
[2020-08-27] MEDS: ACETAMINOPHEN 500 MG TABLET 1000 MG PO ×2 (10:20→18:06)
[2020-08-27 14:00] VITALS: BP 139/58; PULSE 76; RESP 16; TEMP 36.7; O2SAT 99
--- NOTE | 2020-08-27 15:12 | WPDNEURORHBP ---
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 Patient required diuresis with Bumex. On 08/05 patient experienced left-sided weakness. MRI revealed numerous foci of cortical and subcortical as well as subacute strokes along the posterior frontal, lateral and posterior lateral parietal, posterior inferior and right occipital lobe. Patient is currently being anticoagulated on aspirin and Coumadin. Coumadin dosing is ongoing. Patient continues to show progress in all therapies. Patient had been on Bumex 1 mg and Demadox 20 mg but dose was adjusted at the other hospital due to renal concerns. Patient refuses JUDE hose/Carlos Alberto wraps or repositioning of feet. Patient has now refused to wear JUDE hose. Patient believes diuretic and JUDE hose causes edema. Examiner explained meds and compression hose purposes. Functional Status Ambulation Ability Ability to Ambulate 10 Feet: Minimum Assistance X 1 Ability to Ambulate 50 Feet With 2 Turns: Minimum Assistance X 1 Ability to Ambulate 150 Feet: Contact Guard Ambulation Assistive Devices: Walker, Wheeled Transfers Ability Ability to Transfer In/Out of Chair: Minimum Assistance X 1 Exam Narrative: Exam Narrative: Speech is dysarthric . left visual field loss is improving. Patient is compensating for left visual loss by scanning.Patient is utilizing LUE more heart rate and rhythm is regular. Lungs are clear to auscultation. Abdomen is obese. 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 Right upper extremity strength is 4- out of 5. Left upper extremity strength is improving to 3+/5. Bilateral lower extremity strength is 3+/5 to 4-. . BLE edema is trace . Pedal edema 2-3+ . Patient agreed to Carlos Alberto wrap and stated that foot pain is better. Ongoing encouragement to elevate legs and move legs throughout the day Objective Data Vital Signs Vital Signs: Vital Signs - 24 hr 08/26/20 17:29 08/26/20 21:50 08/27/20 06:00 Temperature 36.4 C L 36.1 C L Pulse Rate 76 79 80 Respiratory Rate 16 16 Blood Pressure 131/49 L 155/53 H Pulse Oximetry 99 100 08/27/20 08:18 08/27/20 14:00 Temperature 36.7 C Pulse Rate 80 76 Respiratory Rate 16 Blood Pressure 139/58 L Pulse Oximetry 99 Intake/Output Intake/Output: Intake & Output 08/24/20 08/25/20 08/26/20 08/27/20 23:59 23:59 23:59 23:59 Intake Total 960 720 960 120 Balance 960 720 960 120 Meds/Results Medications: Active Medications Generic Name Dose Route Start Last Admin Trade Name Freq PRN Reason Stop Dose Admin Acetaminophen 1,000 mg 08/09/20 16:38 08/27/20 10:20 Acetaminophen 500 Mg Tablet PO 1,000 mg Q6H PRN Administration Pain, Moderate Aspirin 81 mg 08/10/20 09:00 08/27/20 08:19 Aspirin 81 Mg Enteric Tablet PO 81 mg DAILY ARINA Administration Atorvastatin Calcium 80 mg 08/15/20 17:00 08/26/20 17:29 Atorvastatin 40 Mg Tablet PO 80 mg DAILY@1700 ARINA Administration Bisacodyl 10 mg 08/13/20 21:00 08/26/20 20:42 Bisacodyl 10 Mg Suppository RECTAL Not Given HS ARINA Doxazosin Mesylate 2 mg 08/10/20 09:00 08/27/20 08:19 Doxazosin Mesylate 2 Mg Tablet PO 2 mg DAILY ARINA Administration Melatonin 3 mg 08/10/20 21:00 08/26/20 20:42 Melatonin 3 Mg Tablet PO Not Given HS ARINA Nebivolol 20 mg 08/11/20 17:00 08/27/20 08:18 Nebivolol Hcl 5 Mg Tablet PO 20 mg 0800,1700 ARINA Administration Nifedipine 60 mg 08/10/20 09:00 08/27/20 08:19 Nifedipine 30 Mg Tab.Er.24 PO 60 mg DAILY ARINA Administration Torsemide 5 Mg 1 each 08/24/20 09:00 08/27/20 08:20 Tablet (Nonform
[2020-08-27] MEDS: ATORVASTATIN 40 MG TABLET 80 MG PO (18:05)
[2020-08-27] MEDS: WARFARIN (*PBKC) 5 MG TABLET PO (18:05)
[2020-08-27 21:53] VITALS: BP 123/45; PULSE 79; RESP 16; TEMP 36.3; O2SAT 99
[2020-08-28] VITALS (7 sets, daily range): BP systolic 133–156; BP diastolic 52–65; PULSE 73–77; RESP 16; TEMP 36.4–36.8; O2SAT 99–100
[2020-08-28] MEDS: ACETAMINOPHEN 500 MG TABLET 1000 MG PO ×2 (04:58→18:03)
[2020-08-28 05:14] LABS: INR 2.3; Prothrombin Time 25.9 Seconds (11.1-14.7)
[2020-08-28] MEDS: NEBIVOLOL HCL 5 MG TABLET 20 MG PO ×2 (09:02→17:11)
[2020-08-28] MEDS: NIFEdipine 30 MG TAB.ER.24 60 MG PO (09:03)
[2020-08-28] MEDS: DOXAZOSIN MESYLATE 2 MG TABLET PO (09:03)
[2020-08-28] MEDS: ASPIRIN 81 MG ENTERIC TABLET PO (09:03)
[2020-08-28] MEDS: polyethylene glycoL 3350 17 GM POWD.PACK PO (09:04)
[2020-08-28] MEDS: POTASSIUM CHLORIDE 20 MEQ PACKET (FOR LIQUID) PO (09:04)
[2020-08-28] MEDS: TORSEMIDE 20 MG TABLET PO (09:04)
[2020-08-28] MEDS: SILVERGEL (ELTA) 45 ML 1 APPLIC TOPICAL (09:06)
--- NOTE | 2020-08-28 12:59 | PCDIET ---
Nutrition Follow-Up Complete: Nutrition Diagnosis: Increased protein intake related to wound as evidenced by unstageable coccyx pressure ulcer Nutrition Goal: Patient to consume 75% or more of meals on current diet order. Goal met. Patient consuming 75-100% of most meals on heart healthy, soft and bite size diet. Patient reports good appetite. Daughter present in room; reviewed importance of following heart healthy diet shelter. Handout and RD contact information in room. Last recorded weight is 73.6 kg. Recommend obtaining new weight. Bowel Motility: Last documented BM on 08/26/20. Labs Reviewed: BNP (3760), BUN (22), Cr (1.7) Meds Noted: Lipitor, Cardura, Bystolic, Nifedipine, Miralax, KCl, Demadex, Coumadin Additional Notes: Unstageable area to coccyx. Protein rich foods encouraged. Will continue to monitor with same goal. Nutrition Monitoring and Evaluation: Follow up in 7 days.
--- NOTE | 2020-08-28 13:02 | WPDNEURORHBP ---
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 Patient required diuresis with Bumex. On 08/05 patient experienced left-sided weakness. MRI revealed numerous foci of cortical and subcortical as well as subacute strokes along the posterior frontal, lateral and posterior lateral parietal, posterior inferior and right occipital lobe. Patient is currently being anticoagulated on aspirin and Coumadin. Coumadin dosing is ongoing. Patient continues to show progress in all therapies. Patient had been on Bumex 1 mg and Demadox 20 mg but dose was adjusted at the other hospital due to renal concerns. Patient has refused JUDE hose/Carlos Alberto wraps or repositioning of feet in the past Patient likes the Carlos Alberto wraps to feet and legs. Patient states they feel fine. Patient is happy to return home tomorrow. Review of Systems Review of Systems: All systems reviewed & are unremarkable except as noted in HPI and below Functional Status Ambulation Ability Ability to Ambulate 10 Feet: Contact Guard Ability to Ambulate 50 Feet With 2 Turns: Contact Guard Ability to Ambulate 150 Feet: Contact Guard Ambulation Assistive Devices: Walker, Wheeled Transfers Ability Ability to Transfer In/Out of Chair: Contact Guard Exam Narrative: Exam Narrative: Speech is dysarthric . left visual field loss is improving. Patient is compensating for left visual loss by scanning.Patient is utilizing LUE more heart rate and rhythm is regular. Lungs are clear to auscultation. Abdomen is obese. 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 Right upper extremity strength is 4- out of 5. Left upper extremity strength is improving to 3+/5. Bilateral lower extremity strength is 3+/5 to 4-. . BLE edema is trace . Pedal edema 2 Edema is improved with CARLOS ALBERTO wrap Ongoing encouragement to elevate legs and move legs throughout the day Eyes: Visual Valentine: abnormal by confrontation Alignment and Position: alignment normal Periorbital: periorbital findings normal Eyelids: eyelids normal Conjunctivae: conjunctivae normal Sclera: sclerae normal Cornea: corneas normal Pupils: Equal, round and reactive pupils present EOM: EOMs intact bilaterally Neck: Neck: full ROM, no lymphadenopathy and no meningeal signs Carotids: normal carotid upstroke Lymphatic: no lymphadenopathy noted Resp: Effort & Inspection: normal respiratory effort Auscultation: clear to auscultation bilaterally Cardio: Jugular venous distension: no JVD Rate: regular rate Rhythm: regular rhythm GI: Auscultation: normal bowel sounds Skin: General skin exam: no rashes or lesions noted Neuro: General: oriented to person, oriented to place, no meningeal signs and Unable to assess gait Cranial nerves: Yes Equal, round and reactive pupils present, Yes Bilaterally intact EOM present, Yes Nystagmus not present, Yes facial symmetry, Yes Midline tongue present and Yes Normal hearing present Cognition (Neuro): normal cognition Speech: normal speech Gait exam (Neuro): Unable to assess gait Motor exam (neuro): Abnormal motor strength present ( left hemiparesis) Deep tendon reflexes (DTR's): Right triceps reflex intensity grade: 1+, Left triceps reflex intensity grade: 2+, Rt Biceps (C5, C6): 1+, Left biceps reflex intensity grade: 2+, Right brachioradialis reflex intensity grade: 1+, Left brachioradialis reflex intensity grade: 2+, Right patellar reflex intensity grade: 1+, Left patellar reflex intensity grade: 2+, Right ankle reflex intensity grade: 1+ and Left ankle reflex intensity grade: 2+ Plantar Reflex Responses: downgoing: right and upgoing (positive Bab
[2020-08-28 14:00] LABS: Alanine Aminotransferase 16 U/L (4-35); Albumin Level 3.2 g/dL (3.5-5.1); Alkaline Phosphatase 89 U/L (38-126); Anion Gap 2 mmol/L (8-16); Aspartate Amino Transferase 27 U/L (14-36); Bilirubin,Total < 0.1 mg/dL (0.2-1.3); Blood Urea Nitrogen 23 mg/dL (7-17); Carbon Dioxide 34 mmol/L (22-30); Chloride 100 mmol/L (98-107); Estimated CRCL calculation 25 ml/min; Estimated Glomerular Filt Rate 36; Glucose 143 mg/dL (65-105); Potassium 3.9 mmol/L (3.4-5.0); Sodium 136 mmol/L (137-145)
[2020-08-28] MEDS: WARFARIN (*PBKC) 5 MG TABLET PO (17:11)
[2020-08-28] MEDS: ATORVASTATIN 40 MG TABLET 80 MG PO (17:12)
[2020-08-29 06:00] VITALS: BP 167/70; PULSE 75; RESP 16; TEMP 36.1; O2SAT 100
[2020-08-29 08:26] VITALS: PULSE 75
[2020-08-29] MEDS: NEBIVOLOL HCL 5 MG TABLET 20 MG PO (08:26)
[2020-08-29] MEDS: ASPIRIN 81 MG ENTERIC TABLET PO (08:26)
[2020-08-29] MEDS: DOXAZOSIN MESYLATE 2 MG TABLET PO (08:26)
[2020-08-29] MEDS: NIFEdipine 30 MG TAB.ER.24 60 MG PO (08:26)
[2020-08-29] MEDS: SILVERGEL (ELTA) 45 ML 1 APPLIC TOPICAL (08:27)
[2020-08-29] MEDS: POTASSIUM CHLORIDE 20 MEQ TABLET.ER PO (08:27)
[2020-08-29] MEDS: polyethylene glycoL 3350 17 GM POWD.PACK PO (08:27)
[2020-08-29] MEDS: TORSEMIDE 10 MG TABLET PO (08:28)
[2020-08-29] MEDS: ACETAMINOPHEN 500 MG TABLET 1000 MG PO (08:28)
--- NOTE | 2020-08-29 09:15 | PM.DS ---
DS: Admitting Diagnosis Admitting Diagnosis Admitting Diagnosis: CVA DS: Discharge Diagnosis Discharge Diagnosis (1) CVA (cerebral vascular accident): Code(s): I63.9 - Cerebral infarction, unspecified Status: Acute Assessment and Plan: Patient started on aspirin and Coumadin, Lipitor (2) Left hemiplegia: Code(s): G81.94 - Hemiplegia, unspecified affecting left nondominant side Status: Acute Assessment and Plan: PT OT (3) Dysphagia: Code(s): R13.10 - Dysphagia, unspecified Status: Acute Assessment and Plan: ST Trial of increasing diet. (4) Dysarthria: Code(s): R47.1 - Dysarthria and anarthria Status: Acute Assessment and Plan: Speech therapy (5) Cognitive deficit as late effect of cerebrovascular accident (CVA): Code(s): I69.319 - Unspecified symptoms and signs involving cognitive functions following cerebral infarction Status: Acute (6) Hypertension: Code(s): I10 - Essential (primary) hypertension Status: Acute Assessment and Plan: Patient is taking Cardura 200 mg p.o. daily. Procardia XL 60 mg daily. Potassium chloride 20 mEq daily. Demadex 10 mg q.a.m.. Bystolic 20 mg p.o. b.i.d.. (7) Pleural effusion: Code(s): J90 - Pleural effusion, not elsewhere classified Status: Acute (8) Diastolic heart failure: Code(s): I50.30 - Unspecified diastolic (congestive) heart failure Status: Acute (9) Pedal edema: Code(s): R60.0 - Localized edema Status: Acute Assessment and Plan: Patient with pedal edema. Patient had been on Demadex 10mg daily but adjustments have been made. At previous hospital patient was also taking Demadex 20 mg daily and Bumex 1 mg daily but was discontinued due to renal issues. I have given a 1 time additional dose of Demadex 10 mg in the past with no change. Continue Demadex 15 mg daily. Patient is now compliant with Carlos Alberto wraps. (10) Visual field constriction of left eye: Code(s): H53.482 - Generalized contraction of visual field, left eye Status: Acute Assessment and Plan: OT and speech (11) Osteoarthritis: Code(s): M19.90 - Unspecified osteoarthritis, unspecified site Status: Acute (12) Cervical stenosis (uterine cervix): Code(s): N88.2 - Stricture and stenosis of cervix uteri Status: Acute (13) Cervical radiculopathy due to degenerative joint disease of spine: Code(s): M47.22 - Other spondylosis with radiculopathy, cervical region Status: Acute (14) Gout: Code(s): M10.9 - Gout, unspecified Status: Acute (15) Diet-controlled diabetes mellitus: Code(s): E11.9 - Type 2 diabetes mellitus without complications Status: Acute DS: Summary Hospital Course Hospital Course: Chief Complaint: CVA bilateral hemispheric with left hemiplegia left visual deficits Narrative: HISTORY OF PRESENT ILLNESS: The patient's primary rehab impairment category is stroke The etiologic diagnosis is acute and subacute stroke along the posterior frontal, lateral and posterior lateral parietal posterior and inferior temporal and right occipital lobes. I saw this patient initially [id number] on 08/09/2020 thru 08/29/20 The patient is a 69-year-old left-handed female with past medical history of hypertension, diabetes mellitus type 2 diet control, TIA, breast cancer for resent to [facility] on 07/31/2020 with complaints of shortness of breath dyspnea on exertion, bilateral lower extremity edema and neck pain over the last 3 days. Patient was also found to have hypertensive urgency with a BP significantly elevated at 230 3/134. Patient received IV labetalol, IV hydralazine, and nitropaste and admitted to telemetry. Workup: Chest x-ray showed development of moderate size right-sided pleural effusion with adjacent right basilar at atelectasis and infiltrate, a smal
--- NOTE | 2020-08-29 11:31 | PC.NURSE ---
PHARMACY CALLED NEEDED CONFIRMATION FOR HEBERT, PATIENT USED TO TAKE DAILY NOW IS BID, NIFEDAPINE AND TORESEMIDE WERE ORDERED 15 DAYS, AND 20 DAYS RESPECTIVELY, AND MELATONIN INTERACTION WITH WARFARIN. PER DR. DAIGLE YES BYSTOLIC IS BID, NIFEDAPINE AND TORESEMIDE CAN BE ORDERED BOTH 30 DAY SUPPLY AND D/C MELATONIN
--- OUTSIDE RECORDS SUMMARY | 2020-09-04 12:58 | XMS_ITS ---
:1950 Author Care Team Providers Name Role Phone DR. SLAVA QUINTANA Primary Care Provider [phone] DR. SLAVA QUINTANA Referring Provider [phone] Allergies Code Code System Name Reaction Severity [...]
== END 2020-08-29 09:35 | disposition home health service (06) | DRG 57 ==
PROVIDERS: Admitting Provider Physical Medicine & Rehabilitation; PCP Internal Medicine; Visit Provider Physical Medicine & Rehabilitation
DX: I69.354 Hemiplegia and hemiparesis following cerebral infarction affecting left non-dominant side (principal); J90 Pleural effusion, not elsewhere classified; I50.30 Unspecified diastolic (congestive) heart failure; I69.322 Dysarthria following cerebral infarction; I69.398 Other sequelae of cerebral infarction; H53.482 Generalized contraction of visual field, left eye; R60.0 Localized edema; E11.9 Type 2 diabetes mellitus without complications; I16.0 Hypertensive urgency; I11.0 Hypertensive heart disease with heart failure; M10.9 Gout, unspecified; M47.22 Other spondylosis with radiculopathy, cervical region; Z87.891 Personal history of nicotine dependence; Z85.3 Personal history of malignant neoplasm of breast; Z91.14 Patient's other noncompliance with medication regimen
CPT/HCPCS: 36415; 70450; 71045; 80048; 80053; 80061; 82948; 83036; 83880; 85025; 85610; 92507; 92523; 92526; 92610; 93970; 97110; 97112; 97116; 97162; 97165; 97530; 97535; 97542; A9270